=== PATIENT | female | born 1940 | race Caucasian/White ===

== ENCOUNTER 2016-09-26 13:24 | Inpatient (IN) | payer MEDICARE, OTHER ==
[~2016-09-26] VITALS: Ht 165.1 cm; Wt 104.3 kg
[~2016-09-26 13:24] MED LIST: DULO20 PO; HYDR-2768 PO; LORT7.5T3 PO; LYRI150C PO; MELO7.5T PO; PREG75 PO; TOPR25TA2 PO
[2016-09-26 13:46] VITALS: PULSE 62; RESP 18; TEMP 98.4; O2SAT 96
[2016-09-26] MEDS ORDERED: SODIUM CHLORIDE 0.9% FLUSH 5 ML FLUSH IV FLUSH PRN (14:00)
--- NOTE | 2016-09-26 14:11 | PD ---
HPI Chief Complaint: Injury Time Seen by Provider: 14:00 Travel History International Travel<30 days: No Contact w/Intl Traveler<30days: No Traveled to known affect area: No History of Present Illness HPI Patient is a 76-year-old female presenting to the emergency department for evaluation of altered mental status and frequent falls. Daughter is present states patient had a witnessed fall out of her wheelchair last night, she currently resides at [facility] and has 24-hour sitter's. Patient states that her left ankle is painful, she was diagnosed with a left ankle fracture last Sunday for a hospital and was splinted. She is supposed be nonweightbearing. Daughter states that her memory is deteriorating and she often repeats questions area patient reports the pain in the ankle as a 7 out of 10. She denies any other injury, related to the falls. Patient recently moved here from [place]. Her past medical history significant for hypertension, chronic kidney disease, type 2 diabetes, lumbar sacral radiculopathy, degenerative disc disease, overactive bladder, depression, GERD. PFSH Past Medical History Arthritis: Yes Asthma: No Autoimmune Disease: No Blood Disorders: No Anxiety: No Depression: Yes Heart Rhythm Problems: No Cancer: No Cardiac Catheterization: No High Cholesterol: Yes Chemotherapy: No Chest Pain: No Congestive Heart Failure: No COPD: No Cerebrovascular Accident: No Diabetes: Yes (BORDERLINE) Endocrine: No Gastrointestinal Disorders: No GERD: Yes Glaucoma: No Genitourinary: Yes (overactive bladder) Headaches: No Hepatitis: No Hiatal Hernia: No Herniated Disk: Yes (DDD) Hypertension: Yes Kidney Stones: No Musculoskeletal: Yes (lumbar radiculopathy) Neurologic: Yes (peripheral neuropathy) Reproductive: No Respiratory: No Myocardial Infarction: No Radiation Therapy: No Renal Failure: Yes (stage III chronic kidney disease) Seizures: No Sickle Cell Disease: No Sleep Apnea: No Thyroid Disease: No Ulcer: No Past Surgical History Abdominal Surgery: No AICD: No Cardiac Surgery: No Coronary Artery Bypass Graft: No Ear Surgery: No Endocrine Surgery: No Eye Surgery: No Genitourinary Surgery: No Gynecologic Surgery: No Hysterectomy: No Neurologic Surgery: No Oral Surgery: No Pacemaker: No Thoracic Surgery: No Other Surgery: Yes (bladder sling, laminectomy) Social History Alcohol Use: No Tobacco Use: No Substance Use: No Allergies-Medications (Allergen,Severity, Reaction): Coded Allergies: Compazine (Verified Allergy, Severe, 07/24/09) Elavil (Verified Allergy, Severe, 07/24/09) Neurontin (Verified Allergy, Severe, 07/24/09) Penicillin (Verified Allergy, Severe, 07/24/09) Reported Meds & Prescriptions Reported Meds & Active Scripts Active Reported Macrobid (Nitrofurantoin Monoh/Nitrofur Macro) 100 Mg Cap 100 Mg PO BID Vitamin D3 (Cholecalciferol) 1,000 Unit Tab 1,000 Units PO DAILY Vesicare (Solifenacin) 5 Mg Tab 5 Mg PO HS Trazodone (Trazodone HCl) 100 Mg Tablet 100 Mg PO HS Zoloft (Sertraline HCl) 100 Mg Tab 100 Mg PO DAILY Pantoprazole (Pantoprazole Sodium) 40 Mg Tab 40 Mg PO DAILY Percocet (Oxycodone-Acetaminophen) 7.5-325 mg Tab 1 Tab PO Q8HR PRN Gabapentin 600 Mg Tab 600 Mg PO TID Anti-Fungal (Clotrimazole (Topical)) 1 % Cre 1 Applic TOPICAL TID Atorvastatin (Atorvastatin Calcium) 10 Mg Tab 10 Mg PO HS Aspir-81 (Aspirin) 81 Mg Tabdr 81 Mg PO DAILY Amlodipine (Amlodipine Besylate) 10 Mg Tab 10 Mg PO DAILY Review of Systems Except as stated in HPI: all other systems reviewed are Neg General / Constitutional: No: Fever, Chills HENT: No: Headaches Cardiovascular: No: Chest Pain or Discomfort Respiratory: No: Shortness of Breath Gastrointestinal: No: Nausea, Vomiting, Abdominal Pain Genitourinary: Positive: Incontinence Musculoskeletal: Positive: Pain (left ankle) Skin: Positive Change in Pigmentation (left ankle and left rdz) Neurologic: Positive: Weakness, Change in Mentation, No: Focal Abnormalities Physical Exam Narrative GENERAL: Obese, well-developed, alert female. Resting comfortably in no acute distress. SKIN: Warm and dry. Ecchymosis to left ankle and erythema to left rdz. HEAD: Atraumatic. Normocephalic. EYES: Pupils equal and round. No scleral icterus. No injection or drainage. ENT: No nasal bleeding or discharge. Mucous membranes pink and moist. NECK: Trachea midline. No JVD. CARDIOVASCULAR: Regular rate and rhythm. RESPIRATORY: No accessory muscle use. Clear to auscultation. Breath sounds equal bilaterally. GASTROINTESTINAL: Abdomen soft, non-tender, nondistended. Hepatic and splenic margins not palpable. MUSCULOSKELETAL: Extremities without clubbing, cyanosis. Trace peripheral edema on the left. No obvious deformities. Positive pedal pulses bilaterally. NEUROLOGICAL: Awake and alert. Oriented 3. No obvious cranial nerve deficits. Motor grossly within normal limits. Five out of 5 muscle strength in the arms and legs. Normal speech. PSYCHIATRIC: Appropriate mood and affect; insight and judgment normal. Data Data Last Documented VS Vital Signs Date Time Temp Pulse Resp B/P Pulse Ox O2 Delivery O2 Flow Rate FiO2 09/26/16 15:08 72 24 164/64 98 Nasal Cannula 4 09/26/16 13:46 98.4 Orders Electrocardiogram (09/26/16 13:54) Complete Blood Count With Diff (09/26/16 13:54) Comprehensive Metabolic Panel (09/26/16 13:54) Creatine Kinase (Cpk) (09/26/16 13:54) Prothrombin Time / Inr (Pt) (09/26/16 13:54) Act Partial Throm Time (Ptt) (09/26/16 13:54) Urinalysis - C+S If Indicated (09/26/16 13:54) Lactic Acid Sepsis Protocol (09/26/16 13:54) Blood Culture (09/26/16 13:54) Chest, Single Ap (09/26/16 13:54) Ct Brain W/O Iv Contrast(Rout) (09/26/16 13:54) Blood Glucose (09/26/16 13:54) Ecg Monitoring (09/26/16 13:54) Iv Access Insert/Monitor (09/26/16 13:54) Cath For Specimen (09/26/16 13:54) Oximetry (09/26/16 13:54) Sodium Chloride 0.9% Flush (Ns Flush) (09/26/16 14:00) Ankle, Complete (Hnh2hkg) (09/26/16 ) Splinting (09/26/16 ) Admit Order (Ed Use Only) (09/26/16 16:16) Labs Laboratory Tests Test 09/26/16 09/26/16 14:00 15:19 White Blood Count 7.1 TH/MM3 Red Blood Count 4.28 MIL/MM3 Hemoglobin 11.9 GM/DL Hematocrit 36.4 % Mean Corpuscular Volume 85.0 FL Mean Corpuscular Hemoglobin 27.7 PG Mean Corpuscular Hemoglobin 32.6 % Concent Red Cell Distribution Width 15.8 % Platelet Count 166 TH/MM3 Mean Platelet Volume 7.9 FL Neutrophils (%) (Auto) 70.2 % Lymphocytes (%) (Auto) 19.0 % Monocytes (%) (Auto) 8.5 % Eosinophils (%) (Auto) 1.8 % Basophils (%) (Auto) 0.5 % Neutrophils # (Auto) 5.0 TH/MM3 Lymphocytes # (Auto) 1.4 TH/MM3 Monocytes # (Auto) 0.6 TH/MM3 Eosinophils # (Auto) 0.1 TH/MM3 Basophils # (Auto) 0.0 TH/MM3 CBC Comment DIFF FINAL Differential Comment Prothrombin Time 10.5 SEC Prothromb Time International 1.0 RATIO Ratio Activated Partial 28.0 SEC Thromboplast Time Sodium Level 139 MEQ/L Potassium Level 4.2 MEQ/L Chloride Level 101 MEQ/L Carbon Dioxide Level 30.8 MEQ/L Anion Gap 7 MEQ/L Blood Urea Nitrogen 19 MG/DL Creatinine 0.70 MG/DL Estimat Glomerular Filtration 81 ML/MIN Rate Random Glucose 109 MG/DL Lactic Acid Level 0.8 mmol/L Calcium Level 9.0 MG/DL Total Bilirubin 0.5 MG/DL Aspartate Amino Transf 11 U/L (AST/SGOT) Alanine Aminotransferase 16 U/L (ALT/SGPT) Alkaline Phosphatase 95 U/L Total Creatine Kinase 48 U/L Total Protein 7.1 GM/DL Albumin 3.5 GM/DL Urine Color LIGHT-RED Urine Turbidity CLEAR Urine pH 5.5 Urine Specific [place] 1.024 Urine Protein TRACE mg/dL Urine Glucose (UA) NEG mg/dL Urine Ketones NEG mg/dL Urine Occult Blood NEG Urine Nitrite NEG Urine Bilirubin NEG Urine Urobilinogen LESS THAN 2.0 MG/DL Urine Leukocyte Esterase NEG Urine RBC LESS THAN 1 /hpf Urine WBC LESS THAN 1 /hpf Urine Mucus FEW /lpf Microscopic Urinalysis Comment CATH-CULT NOT IND MDM Medical Decision Making Medical Screen Exam Complete: Yes Emergency Medical Condition: Yes Interpretation(s) Last Impressions Head CT 09/26/16 1354 Signed Impressions: Service Date/Time: Monday, September 26, 2016 14:21 - CONCLUSION: 1. No acute intracranial abnormalities. Retention cyst right maxillary sinus. Alonso Alvarez MD Chest X-Ray 09/26/16 1354 Signed Impressions: Service Date/Time: Monday, September 26, 2016 14:37 - CONCLUSION: No acute cardiopulmonary abnormality is identified. Reji Shultz MD Ankle X-Ray 09/26/16 0000 Signed Impressions: Service Date/Time: Monday, September 26, 2016 14:33 - CONCLUSION: Undermineralized bones with diffuse ankle soft tissue swelling. There is a possible nondisplaced lateral malleolus fracture. Reji Shultz MD Laboratory Tests Test 09/26/16 09/26/16 14:00 15:19 White Blood Count 7.1 TH/MM3 Red Blood Count 4.28 MIL/MM3 Hemoglobin 11.9 GM/DL Hematocrit 36.4 % Mean Corpuscular Volume 85.0 FL Mean Corpuscular Hemoglobin 27.7 PG Mean Corpuscular Hemoglobin 32.6 % Concent Red Cell Distribution Width 15.8 % Platelet Count 166 TH/MM3 Mean Platelet Volume 7.9 FL Neutrophils (%) (Auto) 70.2 % Lymphocytes (%) (Auto) 19.0 % Monocytes (%) (Auto) 8.5 % Eosinophils (%) (Auto) 1.8 % Basophils (%) (Auto) 0.5 % Neutrophils # (Auto) 5.0 TH/MM3 Lymphocytes # (Auto) 1.4 TH/MM3 Monocytes # (Auto) 0.6 TH/MM3 Eosinophils # (Auto) 0.1 TH/MM3 Basophils # (Auto) 0.0 TH/MM3 CBC Comment DIFF FINAL Differential Comment Prothrombin Time 10.5 SEC Prothromb Time International 1.0 RATIO Ratio Activated Partial 28.0 SEC Thromboplast Time Sodium Level 139 MEQ/L Potassium Level 4.2 MEQ/L Chloride Level 101 MEQ/L Carbon Dioxide Level 30.8 MEQ/L Anion Gap 7 MEQ/L Blood Urea Nitrogen 19 MG/DL Creatinine 0.70 MG/DL Estimat Glomerular Filtration 81 ML/MIN Rate Random Glucose 109 MG/DL Lactic Acid Level 0.8 mmol/L Calcium Level 9.0 MG/DL Total Bilirubin 0.5 MG/DL Aspartate Amino Transf 11 U/L (AST/SGOT) Alanine Aminotransferase 16 U/L (ALT/SGPT) Alkaline Phosphatase 95 U/L Total Creatine Kinase 48 U/L Total Protein 7.1 GM/DL Albumin 3.5 GM/DL Urine Color LIGHT-RED Urine Turbidity CLEAR Urine pH 5.5 Urine Specific [place] 1.024 Urine Protein TRACE mg/dL Urine Glucose (UA) NEG mg/dL Urine Ketones NEG mg/dL Urine Occult Blood NEG Urine Nitrite NEG Urine Bilirubin NEG Urine Urobilinogen LESS THAN 2.0 MG/DL Urine Leukocyte Esterase NEG Urine RBC LESS THAN 1 /hpf Urine WBC LESS THAN 1 /hpf Urine Mucus FEW /lpf Microscopic Urinalysis Comment CATH-CULT NOT IND Vital Signs Date Time Temp Pulse Resp B/P Pulse Ox O2 Delivery O2 Flow Rate FiO2 09/26/16 13:46 98.4 62 18 96 Differential Diagnosis Cellulitis versus UTI versus metabolic abnormality versus TIA versus deconditioning versus other Narrative Course Patient is a 76-year-old female presenting for evaluation of frequent falls and altered mental status. Patient was diagnosed with a left ankle fracture last Sunday at [facility]. She fell again last night. We'll repeat imaging of left ankle to rule out worsening displacement. Labs and imaging ordered and pending, IV access established, patient placed on telemetry monitoring and continuous pulse oximetry. Daughter at bedside and gave account of the recent events prompting patient's presentation to the emergency department. CBC is unremarkable Lactic acid 0.8 Chemistry with no acute findings Urinalysis is unremarkable Chest x-ray shows no acute disease CT of the brain with no acute intracranial abnormalities X-ray of the left ankle shows under mineralized bones with diffuse ankle soft tissue swelling, there is a possible nondisplaced lateral malleolus fracture, all imaging was read by radiologist. Discussed with Dr. Moore who accepted admission. He is advised that patient family was requesting placement and long-term care. Admit orders placed. Family and patient advised on findings. Diagnosis Primary Impression: Gait instability Additional Impressions: Frequent falls Ankle fracture, left Qualified Code: S82.892D - Ankle fracture, left, closed, with routine healing , subsequent encounter Admitting Information Admitting Physician Requests: Admit Condition: Stable Briseyda Núñez Sep 26, 2016 14:11
[2016-09-26 14:37] LABS: BASOPHIL % 0.5 % (0.0-2.0); EOSINOPHIL # 0.1 TH/MM3 (0-0.4); EOSINOPHIL % 1.8 % (0.0-4.0); HEMATOCRIT 36.4 % (35.0-46.0); HEMO FLAGS DIFF FINAL; LYMPHOCYTE # 1.4 TH/MM3 (1.0-4.8); MEAN CORPUSCULAR HEMOGLOBIN 27.7 PG (27.0-34.0); MEAN CORPUSCULAR HGB CONC 32.6 % (32.0-36.0); MONO % 8.5 % (0.0-8.0); NEUT % 70.2 % (16.0-70.0); PLATELET COUNT 166 TH/MM3 (150-450); RED BLOOD COUNT 4.28 MIL/MM3 (4.00-5.30); RED CELL DISTRIBUTION WIDTH 15.8 % (11.6-17.2); WHITE BLOOD COUNT 7.1 TH/MM3 (4.0-11.0)
[2016-09-26 14:41] LABS: PROTHROMBIN TIME - PATIENT 10.5 SEC (9.8-11.6)
--- NOTE | 2016-09-26 14:41 | RADRPT ---
EXAM DATE/TIME: 09/26/2016 14:21 [facility] COMPARISON: No previous studies available for comparison. INDICATIONS : Altered mental status. Multiple recent falls. RADIATION DOSE: 56.35 CTDIvol (mGy) MEDICAL HISTORY : Diabetes mellitus type 2. Hypertension. SURGICAL HISTORY : None. ENCOUNTER: Initial ACUITY: 1 day PAIN SCALE: 0/10 LOCATION: cranial TECHNIQUE: Multiple contiguous axial images were obtained of the head. Using automated exposure control and adj ustment of the mA and/or kV according to patient size, radiation dose was kept as low as reasonably a chievable to obtain optimal diagnostic quality images. DICOM format image data is available electro nically for review and comparison. FINDINGS: CEREBRUM: The ventricles are normal for age. No evidence of midline shift, mass lesion, hemorrhage or acute in farction. No extra-axial fluid collections are seen. POSTERIOR FOSSA: The cerebellum and brainstem are intact. The 4th ventricle is midline. The cerebellopontine angle i s unremarkable. EXTRACRANIAL: The visualized portion of the orbits is intact. SKULL: The calvaria is intact. No evidence of skull fracture. CONCLUSION: 1. No acute intracranial abnormalities. Retention cyst right maxillary sinus. Alonso Alvarez MD on September 26, 2016 at 14:37 Board Certified Radiologist. This report was verified electronically.
[2016-09-26 14:51] LABS: ANION GAP 7 MEQ/L (5-15); AST (GOT) 11 U/L (15-37); BICARBONATE 30.8 MEQ/L (21.0-32.0); BLOOD UREA NITROGEN 19 MG/DL (7-18); CHLORIDE 101 MEQ/L (98-107); GLOMERULAR FILTRATION RATE 81 ML/MIN (>89); POTASSIUM 4.2 MEQ/L (3.5-5.1); SODIUM (NA) 139 MEQ/L (136-145)
[2016-09-26 14:52] LABS: ALT (GPT) 16 U/L (10-53)
[2016-09-26 14:54] LABS: ALKALINE PHOSPHATASE 95 U/L (45-117); TOTAL BILIRUBIN ADULT 0.5 MG/DL (0.2-1.0)
[2016-09-26 15:08] VITALS: BP 164/64; PULSE 72; RESP 24; O2SAT 98
[2016-09-26 15:17] LABS: CREATINE KINASE 48 U/L (26-192)
--- NOTE | 2016-09-26 15:17 | RADRPT ---
EXAM DATE/TIME: 09/26/2016 14:33 [facility] COMPARISON: No previous studies available for comparison. INDICATIONS : Fall. Left ankle pain. MEDICAL HISTORY : None. SURGICAL HISTORY : Left ankle fracture (2014). ENCOUNTER: Initial ACUITY: 1 day PAIN SCORE: 5/10 LOCATION: Left lateral ankle FINDINGS: 3 views of the left ankle demonstrate possible nondisplaced fracture through the lateral malleolus. B ones are undermineralized. There is no dislocation. Ankle mortise is intact. There is diffuse soft ti ssue swelling. No radiopaque foreign bodies visualized. CONCLUSION: Undermineralized bones with diffuse ankle soft tissue swelling. There is a possible nondisplaced late ral malleolus fracture. Reji Shultz MD on September 26, 2016 at 15:13 Board Certified Radiologist. This report was verified electronically.
--- NOTE | 2016-09-26 15:23 | RADRPT ---
EXAM DATE/TIME: 09/26/2016 14:37 [facility] COMPARISON: No previous studies available for comparison. INDICATIONS : Fall. Left ankle pain. MEDICAL HISTORY : None. SURGICAL HISTORY : Left ankle fracture (2014). ENCOUNTER: Initial ACUITY: 1 day PAIN SCORE: 5/10 LOCATION: Left lateral ankle FINDINGS: Upright AP view of the chest demonstrates a normal-sized cardiac silhouette. No pleural effusion, air space consolidation, or pneumothorax is identified. The bones and soft tissues demonstrate no acute f inding. CONCLUSION: No acute cardiopulmonary abnormality is identified. Reji Shultz MD on September 26, 2016 at 15:20 Board Certified Radiologist. This report was verified electronically.
[2016-09-26] MEDS ORDERED: ASPI81TA81 PO (15:38)
[2016-09-26] MEDS ORDERED: ATOR10TA15 PO (15:38)
[2016-09-26] MEDS ORDERED: ANTI1CRE6 TOPICAL (15:38)
[2016-09-26] MEDS ORDERED: AMLO10TA2 PO (15:38)
[2016-09-26] MEDS ORDERED: MACR100C2 PO (15:43)
[2016-09-26] MEDS ORDERED: VESI5TAB PO (15:43)
[2016-09-26] MEDS ORDERED: ZOLO100T PO (15:43)
[2016-09-26] MEDS ORDERED: TRAZ100T6 PO (15:43)
[2016-09-26] MEDS ORDERED: VITA100064 PO (15:43)
[2016-09-26] MEDS ORDERED: PERC7.5T13 PO (15:43)
[2016-09-26] MEDS ORDERED: GABA600T PO (15:43)
[2016-09-26] MEDS ORDERED: PANT40TA3 PO (15:43)
[2016-09-26 16:05] LABS: BLOOD, URINE NEG (NEG); COMMENT (UR) CATH-CULT NOT IND; CULTURE IF INDICATED CATH CULTURE NOT IND; GLUCOSE,URINE NEG (NEG); KETONE, URINE NEG (NEG); MUCUS URINE FEW /lpf (OCC); NITRITE,URINE NEG (NEG); PH, URINE 5.5 (5.0-8.5)
[2016-09-26 16:09] LABS: URINE COLOR LIGHT-RED (YELLW/STRAW)
[2016-09-26] MEDS ORDERED: LACTULOSE SYRUP 20 GM/30 ML CUP PO PRN (16:30)
[2016-09-26] MEDS ORDERED: MAGNESIUM HYDROXIDE SUSP 30 ML CUP PO PRN (16:30)
[2016-09-26] MEDS ORDERED: SODIUM CHLORIDE 0.9% FLUSH 10 ML FLUSH IV FLUSH PRN (16:30)
[2016-09-26] MEDS ORDERED: SENNOSIDES 8.6 MG TAB PO PRN (16:30)
[2016-09-26] MEDS ORDERED: ONDANSETRON HCL 4 MG/2 ML VIAL IVP PRN (16:30)
[2016-09-26] MEDS ORDERED: NALOXONE HCL 0.4 MG/ML AMP IV PRN (16:30)
[2016-09-26] MEDS ORDERED: BISACODYL 10 MG SUPP RECTAL PRN (16:30)
[2016-09-26] MEDS ORDERED: ACETAMINOPHEN 325 MG TAB PO PRN (17:00)
--- NOTE | 2016-09-26 17:01 | HHI.HP ---
[facility] Service [facility] Primary Care Physician Smaan Uriarte M.D. Admission Diagnosis AMS, GAIT IMPAIRMENT, FALLS Diagnoses: (1) Frequent falls Diagnosis: Principal (2) Gait instability Diagnosis: Principal Chief Complaint: fall Travel History International Travel<30 Days: No Contact w/Intl Traveler <30 Da: No Traveled to Known Affected Are: No History of Present Illness patient is a 76 y/o female with history of hypertension,lumbar radiculopathy and dyslipidemia who was brought to ER after she fell at [facility]. she says that she fell last Sunday and was evaluated at [facility] and found to have ankle fracture. she was discharged home at the time. she says that she was instructed not to bear any weight on the left lower extremity- however she tried to walk yesterday when she fell again. she's complaining of some pain to the left foot. she denies any chest pain, sob or lightheadedness prior to the fall. she denies any loss of consciousness. she says that at times she feels dizzy.left foot pain was mild at the time of my evaluation. Review of Systems Constitutional: DENIES: Fever, Weight loss, Chills, Night Sweats Eyes: DENIES: Blurred vision, Diplopia, Vision loss, Double Vision Ears, nose, mouth, throat: DENIES: Tinnitus, Vertigo, Throat pain, Epistaxis Respiratory: DENIES: Apneas, Cough, Snoring, Wheezing, Hemoptysis, Sputum production, Shortness of breath Cardiovascular: DENIES: Chest pain, Palpitations, Syncope, Dyspnea on Exertion , PND, Lower Extremity Edema, Orthopnea, Claudication Gastrointestinal: DENIES: Abdominal pain, Black stools, Bloody stools, Constipation, Diarrhea, Nausea, Vomiting, Difficulty Swallowing, Anorexia Genitourinary: DENIES: Urinary frequency, Urgency, Hematuria, Dysuria Musculoskeletal: COMPLAINS OF: Joint pain (left ankle), DENIES: Muscle aches, Stiffness, Joint Swelling Integumentary: DENIES: Rash Neurologic: DENIES: Abnormal gait, Headache, Localized weakness, Paresthesias, Seizures, Speech Problems, Tremor, Poor Balance Psychiatric: DENIES: Anxiety, Confusion, Mood changes, Depression, Hallucinations, Agitation, Suicidal Ideation, Homicidal Ideation, Delusions Past Family Social History Past Medical History hypertension dyslipidemia lumbar radiculopathy depression Past Surgical History bladder sling. Reported Medications Macrobid (Nitrofurantoin Monoh/Nitrofur Macro) 100 Mg Cap 100 Mg PO BID Vitamin D3 (Cholecalciferol) 1,000 Unit Tab 1,000 Units PO DAILY Vesicare (Solifenacin) 5 Mg Tab 5 Mg PO HS Trazodone (Trazodone HCl) 100 Mg Tablet 100 Mg PO HS Zoloft (Sertraline HCl) 100 Mg Tab 100 Mg PO DAILY Pantoprazole (Pantoprazole Sodium) 40 Mg Tab 40 Mg PO DAILY Percocet (Oxycodone-Acetaminophen) 7.5-325 mg Tab 1 Tab PO Q8HR PRN Gabapentin 600 Mg Tab 600 Mg PO TID Anti-Fungal (Clotrimazole (Topical)) 1 % Cre 1 Applic TOPICAL TID Atorvastatin (Atorvastatin Calcium) 10 Mg Tab 10 Mg PO HS Aspir-81 (Aspirin) 81 Mg Tabdr 81 Mg PO DAILY Amlodipine (Amlodipine Besylate) 10 Mg Tab 10 Mg PO DAILY Allergies: Coded Allergies: Compazine (Verified Allergy, Severe, 07/24/09) Elavil (Verified Allergy, Severe, 07/24/09) Neurontin (Verified Allergy, Severe, 07/24/09) Penicillin (Verified Allergy, Severe, 07/24/09) Active Ordered Medications Current Medications IV Flush (NS Flush) 2 ml UNSCH PRN IV FLUSH FLUSH AFTER USING IV ACCESS; Start 09/26/16 at 14:00 Sodium Chloride (NS Flush) 2 ml UNSCH PRN IV FLUSH FLUSH AFTER USING IV ACCESS ; Start 09/26/16 at 16:30; Status UNV Sodium Chloride (NS Flush) 2 ml BID IV FLUSH ; Start 09/26/16 at 21:00; Status UNV Ondansetron HCl (Zofran Inj) 4 mg Q6H PRN IVP NAUSEA OR VOMITING; Start at 16:30; Status UNV Naloxone HCl (Narcan Inj) 0.4 mg UNSCH PRN IV SEE LABEL COMMENTS; Start at 16:30; Status UNV Magnesium Hydroxide (Milk Of Magnesia Liq) 30 ml Q12H PRN PO MILD - MODERATE CONSTIPATION; Start 09/26/16 at 16:30; Status UNV Sennosides (Senokot) 17.2 mg Q12H PRN PO MODERATE - SEVERE CONSTIPATION; Start 09/26/16 at 16:30; Status UNV Bisacodyl (Dulcolax Supp) 10 mg DAILY PRN RECTAL SEVERE CONSITIPATION; Start at 16:30; Status UNV Lactulose (Lactulose Liq) 30 ml DAILY PRN PO SEVERE CONSITIPATION; Start at 16:30; Status UNV Family History not relevant to this admission. Social History lives at [facility]. no smoking or drinking. Physical Exam Vital Signs Vital Signs Date Time Temp Pulse Resp B/P Pulse Ox O2 Delivery O2 Flow Rate FiO2 09/26/16 15:08 72 24 164/64 98 Nasal Cannula 4 09/26/16 14:54 Nasal Cannula 2 09/26/16 13:46 98.4 62 18 96 Physical Exam GENERAL: This is a well-nourished, well-developed patient, in no apparent distress. SKIN: No rashes, ecchymoses or lesions. Cool and dry. HEAD: Atraumatic. Normocephalic. No temporal or scalp tenderness. EYES: Pupils equal round and reactive. Extraocular motions intact. No scleral icterus. No injection or drainage. ENT: Nose without bleeding, purulent drainage or septal hematoma. Throat without erythema, tonsillar hypertrophy or exudate. Uvula midline. Airway patent. NECK: Trachea midline. No JVD or lymphadenopathy. Supple, nontender, no meningeal signs. CARDIOVASCULAR: Regular rate and rhythm without murmurs, gallops, or rubs. RESPIRATORY: Clear to auscultation. Breath sounds equal bilaterally. No wheezes , rales, or rhonchi. GASTROINTESTINAL: Abdomen soft, non-tender, nondistended. No hepato-splenomegaly , or palpable masses. No guarding. MUSCULOSKELETAL: left leg covered with clean dressing. NEUROLOGICAL: Awake and alert. Cranial nerves II through XII intact. Motor and sensory grossly within normal limits. Five out of 5 muscle strength in all muscle groups. Normal speech. Laboratory Laboratory Tests Test 09/26/16 09/26/16 14:00 15:19 White Blood Count 7.1 Red Blood Count 4.28 Hemoglobin 11.9 Hematocrit 36.4 Mean Corpuscular Volume 85.0 Mean Corpuscular Hemoglobin 27.7 Mean Corpuscular Hemoglobin 32.6 Concent Red Cell Distribution Width 15.8 Platelet Count 166 Mean Platelet Volume 7.9 Neutrophils (%) (Auto) 70.2 Lymphocytes (%) (Auto) 19.0 Monocytes (%) (Auto) 8.5 Eosinophils (%) (Auto) 1.8 Basophils (%) (Auto) 0.5 Neutrophils # (Auto) 5.0 Lymphocytes # (Auto) 1.4 Monocytes # (Auto) 0.6 Eosinophils # (Auto) 0.1 Basophils # (Auto) 0.0 CBC Comment DIFF FINAL Differential Comment Prothrombin Time 10.5 Prothromb Time International 1.0 Ratio Activated Partial 28.0 Thromboplast Time Sodium Level 139 Potassium Level 4.2 Chloride Level 101 Carbon Dioxide Level 30.8 Anion Gap 7 Blood Urea Nitrogen 19 Creatinine 0.70 Estimat Glomerular Filtration 81 Rate Random Glucose 109 Lactic Acid Level 0.8 Calcium Level 9.0 Total Bilirubin 0.5 Aspartate Amino Transf 11 (AST/SGOT) Alanine Aminotransferase 16 (ALT/SGPT) Alkaline Phosphatase 95 Total Creatine Kinase 48 Total Protein 7.1 Albumin 3.5 Urine Color LIGHT-RED Urine Turbidity CLEAR Urine pH 5.5 Urine Specific [place] 1.024 Urine Protein TRACE Urine Glucose (UA) NEG Urine Ketones NEG Urine Occult Blood NEG Urine Nitrite NEG Urine Bilirubin NEG Urine Urobilinogen LESS THAN 2.0 Urine Leukocyte Esterase NEG Urine RBC LESS THAN 1 Urine WBC LESS THAN 1 Urine Mucus FEW Microscopic Urinalysis Comment CATH-CULT NOT IND Date/Time Procedure Status Source Growth 09/26/16 14:12 Aerobic Blood Culture Received Blood Peripheral Pending 09/26/16 14:12 Anaerobic Blood Culture Received Blood Peripheral Pending Result Diagram: 09/26/16 1400 09/26/16 1400 Imaging Last Impressions Head CT 09/26/16 1354 Signed Impressions: Service Date/Time: Monday, September 26, 2016 14:21 - CONCLUSION: 1. No acute intracranial abnormalities. Retention cyst right maxillary sinus. Alonso Alvarez MD Chest X-Ray 09/26/16 1354 Signed Impressions: Service Date/Time: Monday, September 26, 2016 14:37 - CONCLUSION: No acute cardiopulmonary abnormality is identified. Reji Shultz MD Ankle X-Ray 09/26/16 0000 Signed Impressions: Service Date/Time: Monday, September 26, 2016 14:33 - CONCLUSION: Undermineralized bones with diffuse ankle soft tissue swelling. There is a possible nondisplaced lateral malleolus fracture. Reji Shultz MD Assessment and Plan Assessment and Plan A/P - frequent falls with gait imbalance with possible nondisplaced fracture of the left lateral malleolus fall precautions- continue with pain control- consult case management and PT. will check carotid doppler. f/u with ortho as outpatient. -hypertension/ dyslipidemia/ depression; resume home meds -DVT prophylaxis with subq Lovenox Discussed Condition With the patient. Luis Moran MD Sep 26, 2016 17:01
[2016-09-26 17:26] VITALS: BP 121/71; PULSE 69; RESP 20; TEMP 96.6; O2SAT 94
[2016-09-26] MEDS ORDERED: SODIUM CHLOR 0.9% 1000 ML INJ 1,000 ML IV ONE (17:30)
[2016-09-26] MEDS: ENOXAPARIN SODIUM 40 MG/0.4 ML SYRINGE SQ SCH (18:22)
[2016-09-26 19:52] VITALS: BP 141/63; PULSE 70; RESP 18; TEMP 98.1; O2SAT 94
[2016-09-26] MEDS: ATORVASTATIN 10 MG TAB PO SCH (20:05)
[2016-09-26] MEDS: traZODone HCL 100 MG TAB PO SCH (20:05)
[2016-09-26] MEDS: ACETAMINOPHEN/HYDROcodone 325 MG/5 MG TAB PO PRN ×2 (20:12)
--- NOTE | 2016-09-26 20:31 | RADRPT ---
EXAM DATE/TIME: 09/26/2016 18:54 [facility] COMPARISON: No previous studies available for comparison. INDICATIONS : Dizziness. MEDICAL HISTORY : Hypercholesterolemia. Gastroesophageal reflux disease. Hypertension. Peripheral neuropathy. Renal rylie lure. Arthritis. Degenerative disc disease. Diabetes. Blood transfusion. SURGICAL HISTORY : Hysterectomy. Laminectomy. ENCOUNTER: Initial ACUITY: 1 day PAIN SCORE: 0/10 LOCATION: Bilateral neck PEAK SYSTOLIC VELOCITIES (cm/sec): ICA/CCA RATIO: Right: 0.9 Left: 1.3 ICA: Right: 109 Left: 149 (distal); 110 (midportion) CCA: Right: 116 Left: 111 ECA: Right: 128 Left: 115 VERTEBRAL: Right: 92 antegrade Left: 61 antegrade Elevated flow velocities and ICA/CCA ratios have been found to correlate with increased degrees of vessel stenosis, calculated as percentage of diameter relative to a normal segment of distal ICA/CCA FINDINGS: RIGHT CAROTID: No significant stenosis is visualized. The waveforms are within normal limits. LEFT CAROTID: No significant stenosis is visualized. The waveforms are within normal limits. VERTEBRAL ARTERIES: Antegrade flow is seen in both vertebral arteries. CONCLUSION: Hemodynamic profile is characteristic of less than 50% stenosis bilaterally. Casper Parkinson MD on September 26, 2016 at 20:28 Board Certified Radiologist. This report was verified electronically.
[2016-09-26] MEDS: SODIUM CHLORIDE 0.9% FLUSH 10 ML FLUSH IV FLUSH SCH (21:00)
[2016-09-26] MEDS: TOLTERODINE TARTRATE 2 MG CAP LA PO SCH (21:30)
[2016-09-26 22:01] VITALS: PULSE 68
[2016-09-26 23:59] VITALS: PULSE 64
[2016-09-27] VITALS (12 sets, daily range): BP systolic 116–161; BP diastolic 55–83; PULSE 61–76; RESP 16–18; TEMP 97.8–98.7; O2SAT 88–94
[2016-09-27] MEDS: ACETAMINOPHEN/HYDROcodone 325 MG/5 MG TAB PO PRN ×4 (01:47→17:52)
[2016-09-27 08:17] LABS: AUTOMATED NEUTROPHIL # 3.7 TH/MM3 (1.8-7.7); BASOPHIL % 0.6 % (0.0-2.0); EOSINOPHIL # 0.1 TH/MM3 (0-0.4); EOSINOPHIL % 1.9 % (0.0-4.0); HEMATOCRIT 29.9 % (35.0-46.0); HEMO FLAGS DIFF FINAL; LYMPHOCYTE # 1.9 TH/MM3 (1.0-4.8); MEAN CELL VOLUME 83.9 FL (80.0-100.0); MEAN CORPUSCULAR HEMOGLOBIN 28.1 PG (27.0-34.0); MEAN CORPUSCULAR HGB CONC 33.6 % (32.0-36.0); NEUT % 58.5 % (16.0-70.0); PLATELET COUNT 145 TH/MM3 (150-450); RED BLOOD COUNT 3.56 MIL/MM3 (4.00-5.30); RED CELL DISTRIBUTION WIDTH 15.9 % (11.6-17.2); WHITE BLOOD COUNT 6.2 TH/MM3 (4.0-11.0)
--- NOTE | 2016-09-27 08:22 | HHI.PR ---
Subjective Remarks Follow up for fall, left ankle fracture. The patient explains she was bending over to pepper picker something off the floor and upon standing, she became dizzy, lost her balance, and fell. She denies any loss of consciousness. She complains of dysuria and believes she has a UTI. Denies any abdominal/suprapubic pain, nausea/vomiting. She does complain of left ankle pain, fairly well controlled. She explains she also has neuropathy in her right foot and now that she has a cast on the left, it is going to be very difficult for her to get around. She absolutely agrees to rehab placement. Objective Vitals Vital Signs Date Time Temp Pulse Resp B/P Pulse Ox O2 Delivery O2 Flow Rate FiO2 09/27/16 07:28 98.0 68 18 133/61 88 09/27/16 04:14 73 09/27/16 03:45 98.1 68 18 126/65 92 09/27/16 00:02 98.5 73 16 139/67 90 09/26/16 23:59 64 09/26/16 22:01 68 09/26/16 19:52 98.1 70 18 141/63 94 09/26/16 17:26 96.6 69 20 121/71 94 09/26/16 15:08 72 24 164/64 98 Nasal Cannula 4 09/26/16 14:54 Nasal Cannula 2 09/26/16 13:46 98.4 62 18 96 I/O 09/26/16 09/26/16 09/26/16 09/27/16 09/27/16 09/27/16 07:00 15:00 23:00 07:00 15:00 23:00 Intake Total 915 ml Output Total 300 ml Balance -300 ml 915 ml Intake Oral 240 ml IV Total 675 ml Output Urine Total 300 ml # Voids 1 2 Result Diagram: 09/27/16 0800 09/26/16 1400 Imaging Last Impressions Head CT 09/26/16 1354 Signed Impressions: Service Date/Time: Monday, September 26, 2016 14:21 - CONCLUSION: 1. No acute intracranial abnormalities. Retention cyst right maxillary sinus. Alonso Alvarez MD Chest X-Ray 09/26/16 1354 Signed Impressions: Service Date/Time: Monday, September 26, 2016 14:37 - CONCLUSION: No acute cardiopulmonary abnormality is identified. Reji Shultz MD Carotid Artery Ultrasound 09/26/16 0000 Signed Impressions: Service Date/Time: Monday, September 26, 2016 18:54 - CONCLUSION: Hemodynamic profile is characteristic of less than 50%% stenosis bilaterally. Casper Parkinson MD Ankle X-Ray 09/26/16 0000 Signed Impressions: Service Date/Time: Monday, September 26, 2016 14:33 - CONCLUSION: Undermineralized bones with diffuse ankle soft tissue swelling. There is a possible nondisplaced lateral malleolus fracture. Reji Shultz MD Objective Remarks GENERAL: Well-nourished, well-developed pleasant elderly female patient in [facility]. SKIN: Warm and dry. No rash. HEENT: Normocephalic. Atraumatic. Pupils equal and round. Mucous membranes pink and moist. NECK: Supple. Trachea midline. CARDIOVASCULAR: Regular rate and rhythm. S1, S2 noted. No murmur appreciated. RESPIRATORY: No accessory muscle use. Clear to auscultation. Breath sounds equal bilaterally. GASTROINTESTINAL: Abdomen soft, non-tender, nondistended. Normoactive bowel sounds x4. MUSCULOSKELETAL: No obvious deformities. Extremities without clubbing, cyanosis , or edema. Left leg in splint; brisk capillary refill of toes; distal lower extremity sensation intact. NEUROLOGICAL: Awake and alert. No obvious cranial nerve deficits. Motor grossly within normal limits. Normal speech. PSYCHIATRIC: Appropriate mood and affect; insight and judgment normal. Medications and IVs Current Medications Medications (Trade) Dose Ordered Sig/Sanaz Route Start Time Stop Time Status Last Admin (NS Flush) 2 ml UNSCH PRN IV FLUSH 09/26/16 16:30 09/26/16 18:22 (NS Flush) 2 ml BID IV FLUSH 09/26/16 21:00 (Zofran Inj) 4 mg Q6H PRN IVP 09/26/16 16:30 (Narcan Inj) 0.4 mg UNSCH PRN IV 09/26/16 16:30 (Milk Of Magnesia Liq) 30 ml Q12H PRN PO 09/26/16 16:30 (Senokot) 17.2 mg Q12H PRN PO 09/26/16 16:30 (Dulcolax Supp) 10 mg DAILY PRN RECTAL 09/26/16 16:30 (Lactulose Liq) 30 ml DAILY PRN PO 09/26/16 16:30 (Norvasc) 10 mg DAILY PO 09/27/16 09:00 09/27/16 09:56 (Ecotrin Ec) 81 mg DAILY PO 09/27/16 09:00 09/27/16 09:56 (Lipitor) 10 mg HS PO 09/26/16 21:00 09/26/16 20:05 (Vitamin D3) 1,000 units DAILY PO 09/27/16 09:00 09/27/16 09:56 (Protonix) 40 mg DAILY PO 09/27/16 09:00 09/27/16 09:56 (Zoloft) 100 mg DAILY PO 09/27/16 09:00 09/27/16 09:56 (Detrol La) 2 mg HS PO 09/26/16 21:00 09/26/16 21:30 (Desyrel) 100 mg HS PO 09/26/16 21:00 09/26/16 20:05 (Tylenol) 650 mg Q4H PRN PO 09/26/16 17:00 ([place] 5-325 Mg) 1 tab Q4H PRN PO 09/26/16 17:00 ([place] 5-325 Mg) 2 tab Q4H PRN PO 09/26/16 17:00 09/27/16 10:19 (Lovenox Inj) 40 mg Q24H SQ 09/26/16 18:00 09/26/16 18:22 A/P Problem List: (1) Frequent falls ICD Code: R29.6 Status: Acute (2) Gait instability ICD Code: R26.81 Status: Acute Assessment and Plan 76-year-old female with history of HTN, HLD, lumbar radiculopathy, neuropathy, presents after a fall at her [facility]. She also reports recent fall last 09/20, went to , diagnosed with ankle fracture, recommend splint, NWB, and f/up with ortho as outpatient. Frequent falls with gait imbalance: suspect multifactorial secondary to lumbar radiculopathy, neuropathy, and now with left ankle fracture in splint. -Head CT images reviewed, unremarkable -Carotid U/S reviewed and unremarkable -Consult PT -fall precautions -check orthostatics -patient likely needs rehab -case management consulted Subacute Nondisplaced Fracture of Left Lateral Malleolus: ankle xray reviewed, shows diffuse ankle soft tissue swelling with nondisplaced lateral malleolus fracture. -Splint placed in the ED, will continue -NWB to LLE -pain control with [place] prn -outpatient f/up with orthopedics Hypertension/Hyperlipidemia: chronic -continue patient' Norvasc, statin -monitor BP, adjust antihypertensives as needed Depression: chronic -continue home meds including Zoloft and Trazodone Dysuria: patient reports dysuria however UA negative, afebrile, no leukocytosis ; appears patient was on Macrobid prior to arrival -will repeat UA again today with mandatory urine culture -start on Pyridium DVT prophylaxis: Lovenox Discharge Planning Case management to arrange SNF placement. 1600hrs: Discussed with case management. Patient meets inpatient criteria for hypoxia, O2 sat 88% on room air. Patient has had persistent hypoxia throughout the admission. Patient does not wear oxygen at home. CXR reviewed and unremarkable. Will check CT-PA to rule out PE. Demi Virgen PA-C Sep 27, 2016 8:22 am
[2016-09-27 08:46] LABS: ALKALINE PHOSPHATASE 79 U/L (45-117); ALT (GPT) 13 U/L (10-53); ANION GAP 6 MEQ/L (5-15); AST (GOT) 11 U/L (15-37); BICARBONATE 30.2 MEQ/L (21.0-32.0); BLOOD UREA NITROGEN 17 MG/DL (7-18); CHLORIDE 101 MEQ/L (98-107); GLOMERULAR FILTRATION RATE 85 ML/MIN (>89); POTASSIUM 4.1 MEQ/L (3.5-5.1); SODIUM (NA) 137 MEQ/L (136-145); TOTAL BILIRUBIN ADULT 0.4 MG/DL (0.2-1.0)
[2016-09-27] MEDS: SODIUM CHLORIDE 0.9% FLUSH 10 ML FLUSH IV FLUSH SCH ×2 (09:00→21:35)
[2016-09-27] MEDS: PANTOPRAZOLE SOD 40 MG DELAYED RELEASE TAB PO SCH (09:56)
[2016-09-27] MEDS: ASPIRIN EC 81 MG TABEC PO SCH (09:56)
[2016-09-27] MEDS: CHOLECALCIFEROL (VIT D3) 1000 UNIT TAB PO SCH (09:56)
[2016-09-27] MEDS: SERTRALINE HCL 100 MG TAB PO SCH (09:56)
--- NOTE | 2016-09-27 10:59 | EKG ---
Date Performed: 09/26/2016 Time Performed: 14:48:07 PTAGE: 76 years EKG: Sinus rhythm NORMAL ECG PREVIOUS TRACING : 11/16/2008 18.53 DOCTOR: Jose Luis Pompa Interpretating Date/Time 09/27/2016 10:58:26
[2016-09-27 14:31] LABS: BLOOD, URINE NEG (NEG); COMMENT (UR) CULT NOT INDICATED; CULTURE IF INDICATED CULT NOT INDICATED; GLUCOSE,URINE NEG (NEG); KETONE, URINE NEG (NEG); MUCUS URINE FEW /lpf (OCC); NITRITE,URINE NEG (NEG); SQUAMOUS EPITHELIAL CELL URINE 1 /hpf (0-5); URINE COLOR LIGHT-YELLOW (YELLW/STRAW)
[2016-09-27] MEDS ORDERED: PHENAZOPYRIDINE HCL 100 MG TAB PO ONE (16:30)
[2016-09-27] MEDS: ENOXAPARIN SODIUM 40 MG/0.4 ML SYRINGE SQ SCH (17:49)
[2016-09-27] MEDS ORDERED: IOHEXOL 350 MG/ML 10 ML VIAL (for RAD DIAG) IV ONE (20:14)
--- NOTE | 2016-09-27 20:55 | RADRPT ---
EXAM DATE/TIME: 09/27/2016 20:08 [facility] COMPARISON: No previous studies available for comparison. INDICATIONS : Shortness of breath. IV CONTRAST: 75 cc Omnipaque 350 (iohexol) IV RADIATION DOSE: 23.10 CTDIvol (mGy) MEDICAL HISTORY : Hypertension. Cardiovascular disease SURGICAL HISTORY : Hysterectomy. ENCOUNTER: Initial ACUITY: 1 day PAIN SCALE: 0/10 LOCATION: Bilateral chest TECHNIQUE: Volumetric scanning of the chest was performed using a pulmonary embolism protocol MIP images were re constructed. Using automated exposure control and adjustment of the mA and/or kV according to patien t size, radiation dose was kept as low as reasonably achievable to obtain optimal diagnostic quality images. DICOM format image data is available electronically for review and comparison. Follow-up recommendations for incidentally detected pulmonary nodules are based at a minimum on nodul e size and patient risk factors according to Fleischner Society Guidelines. FINDINGS: PULMONARY ARTERIES: No filling defects are seen in the pulmonary arteries through the segmental level. LUNGS: There is no consolidation or pneumothorax . No concerning pulmonary nodule is visualized. Mild biba silar atelectasis. PLEURAE: There are bilateral small pleural effusions extending along the major fissure bilaterally. MEDIASTINUM: Subcarinal node is enlarged at 2.0 cm. Azygous node is normal size. CONCLUSION: 1. The study is negative for pulmonary embolism. 2. Solitary enlarged subcarinal node is of uncertain significance. 3. Mild bilateral effusions in the fissures and mild bibasilar atelectasis. Casper Parkinson MD on September 27, 2016 at 20:50 Board Certified Radiologist. This report was verified electronically.
[2016-09-27] MEDS: TOLTERODINE TARTRATE 2 MG CAP LA PO SCH (21:34)
[2016-09-27] MEDS: PHENAZOPYRIDINE HCL 100 MG TAB PO SCH (21:34)
[2016-09-27] MEDS: traZODone HCL 100 MG TAB PO SCH (21:34)
[2016-09-27] MEDS: ATORVASTATIN 10 MG TAB PO SCH (21:34)
[2016-09-28] VITALS (8 sets, daily range): BP systolic 104–163; BP diastolic 40–69; PULSE 60–72; RESP 17–18; TEMP 96.6–98; O2SAT 94–95
[2016-09-28] MEDS: ACETAMINOPHEN/HYDROcodone 325 MG/5 MG TAB PO PRN ×4 (03:41→22:23)
[2016-09-28] MEDS: PHENAZOPYRIDINE HCL 100 MG TAB PO SCH ×3 (06:17→22:22)
[2016-09-28] MEDS: SODIUM CHLORIDE 0.9% FLUSH 10 ML FLUSH IV FLUSH SCH ×2 (09:00→22:22)
[2016-09-28] MEDS: ASPIRIN EC 81 MG TABEC PO SCH (10:24)
[2016-09-28] MEDS: CHOLECALCIFEROL (VIT D3) 1000 UNIT TAB PO SCH (10:24)
[2016-09-28] MEDS: PANTOPRAZOLE SOD 40 MG DELAYED RELEASE TAB PO SCH (10:24)
[2016-09-28] MEDS: SERTRALINE HCL 100 MG TAB PO SCH (10:24)
[2016-09-28] MEDS: ENOXAPARIN SODIUM 40 MG/0.4 ML SYRINGE SQ SCH (16:51)
--- NOTE | 2016-09-28 18:43 | HHI.PR ---
Subjective Remarks Follow up for fall, left ankle fracture. Patient is doing well. No fever, chills. Objective Vitals Vital Signs Date Time Temp Pulse Resp B/P Pulse Ox O2 Delivery O2 Flow Rate FiO2 09/28/16 15:56 72 09/28/16 15:34 96.8 68 18 104/40 95 09/28/16 11:28 96.6 71 18 138/58 95 09/28/16 07:42 97.2 60 18 117/64 94 09/28/16 07:30 Nasal Cannula 2.00 09/28/16 04:40 98.0 70 18 153/67 94 09/27/16 23:00 98.7 70 17 145/83 93 09/27/16 22:12 69 09/27/16 20:30 16 09/27/16 19:24 98.1 76 18 161/72 94 I/O 09/27/16 09/27/16 09/27/16 09/28/16 09/28/16 09/28/16 06:59 14:59 22:59 06:59 14:59 22:59 Intake Total 915 ml 960 ml 1100 ml Balance 915 ml 960 ml 1100 ml Intake Oral 240 ml 720 ml 1100 ml IV Total 675 ml 240 ml # Voids 2 3 1 10 # Bowel Movements 1 Result Diagram: 09/27/16 0800 09/27/16 [address] Angiography 09/27/16 0000 Signed Impressions: Service Date/Time: Tuesday, September 27, 2016 20:08 - CONCLUSION: 1. The study is negative for pulmonary embolism. 2. Solitary enlarged subcarinal node is of uncertain significance. 3. Mild bilateral effusions in the fissures and mild bibasilar atelectasis. Casper Parkinson MD Head CT 09/26/16 1354 Signed Impressions: Service Date/Time: Monday, September 26, 2016 14:21 - CONCLUSION: 1. No acute intracranial abnormalities. Retention cyst right maxillary sinus. Alonso Alvarez MD Chest X-Ray 09/26/16 1354 Signed Impressions: Service Date/Time: Monday, September 26, 2016 14:37 - CONCLUSION: No acute cardiopulmonary abnormality is identified. Reji Shultz MD Carotid Artery Ultrasound 09/26/16 0000 Signed Impressions: Service Date/Time: Monday, September 26, 2016 18:54 - CONCLUSION: Hemodynamic profile is characteristic of less than 50%% stenosis bilaterally. Casper Parkinson MD Ankle X-Ray 09/26/16 0000 Signed Impressions: Service Date/Time: Monday, September 26, 2016 14:33 - CONCLUSION: Undermineralized bones with diffuse ankle soft tissue swelling. There is a possible nondisplaced lateral malleolus fracture. Reji Shultz MD Objective Remarks GENERAL: Alert, NAD. SKIN: Warm and dry. HEAD: Normocephalic. EYES: No scleral icterus. No injection or drainage. NECK: Supple, trachea midline. No JVD or lymphadenopathy. CARDIOVASCULAR: Regular rate and rhythm without murmurs, gallops, or rubs. RESPIRATORY: Breath sounds equal bilaterally. No accessory muscle use. GASTROINTESTINAL: Abdomen soft, non-tender, nondistended. MUSCULOSKELETAL: No cyanosis, or edema. Left leg in splint BACK: Nontender without obvious deformity. No CVA tenderness. A/P Problem List: (1) Frequent falls ICD Code: R29.6 Status: Acute (2) Gait instability ICD Code: R26.81 Status: Acute Assessment and Plan 76-year-old female with history of HTN, HLD, lumbar radiculopathy, neuropathy, presents after a fall at her [facility]. She also reports recent fall last 09/20, went to , diagnosed with ankle fracture, recommend splint, NWB, and f/up with ortho as outpatient. Frequent falls with gait imbalance: suspect multifactorial secondary to lumbar radiculopathy, neuropathy, and now with left ankle fracture in splint. -Head CT images reviewed, unremarkable -Carotid U/S reviewed and unremarkable -Consult PT --> recommends rehab. -fall precautions Subacute Nondisplaced Fracture of Left Lateral Malleolus: ankle xray reviewed, shows diffuse ankle soft tissue swelling with nondisplaced lateral malleolus fracture. -Splint placed in the ED, will continue -NWB to LLE -pain control with [place] prn -outpatient f/up with orthopedics Hypertension/Hyperlipidemia: chronic -continue patient' Norvasc, statin -monitor BP, adjust antihypertensives as needed Depression: chronic -continue home meds including Zoloft and Trazodone Dysuria: patient reports dysuria however UA negative, afebrile, no leukocytosis ; appears patient was on Macrobid prior to arrival - repeat UA unremarkable. -cont Pyridium Hypoxia - Patient's O2 sat went down to 88% on room air. CT PE showed no evidence of PE. - Will continue O2 supplement as needed to keep O2 sat > 90%. DVT prophylaxis: Shanel Hanson DO Sep 28, 2016 18:43
[2016-09-28] MEDS: ATORVASTATIN 10 MG TAB PO SCH (22:21)
[2016-09-28] MEDS: traZODone HCL 100 MG TAB PO SCH (22:21)
[2016-09-28] MEDS: TOLTERODINE TARTRATE 2 MG CAP LA PO SCH (22:22)
[2016-09-29 04:00] VITALS: BP 142/63; PULSE 69; RESP 18; TEMP 97; O2SAT 95
[2016-09-29] MEDS: PHENAZOPYRIDINE HCL 100 MG TAB PO SCH ×2 (05:13→13:03)
[2016-09-29] MEDS: ACETAMINOPHEN/HYDROcodone 325 MG/5 MG TAB PO PRN ×2 (05:14→11:08)
[2016-09-29 07:42] VITALS: BP 120/62; PULSE 69; RESP 18; TEMP 95.9; O2SAT 97
[2016-09-29] MEDS: SODIUM CHLORIDE 0.9% FLUSH 10 ML FLUSH IV FLUSH SCH (09:00)
[2016-09-29 09:35] VITALS: PULSE 64
[2016-09-29] MEDS: CHOLECALCIFEROL (VIT D3) 1000 UNIT TAB PO SCH (09:42)
[2016-09-29] MEDS: SERTRALINE HCL 100 MG TAB PO SCH (09:42)
[2016-09-29] MEDS: ASPIRIN EC 81 MG TABEC PO SCH (09:42)
[2016-09-29] MEDS: PANTOPRAZOLE SOD 40 MG DELAYED RELEASE TAB PO SCH (09:42)
[2016-09-29 11:55] VITALS: BP 161/60; PULSE 73; RESP 18; TEMP 97.4; O2SAT 96
--- NOTE | 2016-09-29 12:02 | HHI.PR ---
Subjective Remarks Follow up for fall, left ankle fracture. Patient is resting in bed. Wakes up on verbal commands. No acute concerns. Objective Vitals Vital Signs Date Time Temp Pulse Resp B/P Pulse Ox O2 Delivery O2 Flow Rate FiO2 09/29/16 11:55 97.4 73 18 161/60 96 09/29/16 07:42 95.9 69 18 120/62 97 09/29/16 04:00 Nasal Cannula 2.00 09/29/16 04:00 97.0 69 18 142/63 95 09/29/16 00:00 Nasal Cannula 2.00 09/28/16 23:45 97.1 61 18 143/67 95 09/28/16 20:25 96.7 67 17 163/69 94 09/28/16 20:19 65 09/28/16 20:00 Nasal Cannula 2.00 09/28/16 15:56 72 09/28/16 15:34 96.8 68 18 104/40 95 I/O 09/28/16 09/28/16 09/28/16 09/29/16 09/29/16 09/29/16 07:00 15:00 23:00 07:00 15:00 23:00 Intake Total 1100 ml 480 ml 240 ml Balance 1100 ml 480 ml 240 ml Intake Oral 1100 ml 480 ml 240 ml # Voids 10 4 8 # Bowel Movements 1 1 0 Result Diagram: 09/27/16 0800 09/27/16 [address] Angiography 09/27/16 0000 Signed Impressions: Service Date/Time: Tuesday, September 27, 2016 20:08 - CONCLUSION: 1. The study is negative for pulmonary embolism. 2. Solitary enlarged subcarinal node is of uncertain significance. 3. Mild bilateral effusions in the fissures and mild bibasilar atelectasis. Casper Parkinson MD Head CT 09/26/16 1354 Signed Impressions: Service Date/Time: Monday, September 26, 2016 14:21 - CONCLUSION: 1. No acute intracranial abnormalities. Retention cyst right maxillary sinus. Alonso Alvarez MD Chest X-Ray 09/26/16 1354 Signed Impressions: Service Date/Time: Monday, September 26, 2016 14:37 - CONCLUSION: No acute cardiopulmonary abnormality is identified. Reji Shultz MD Carotid Artery Ultrasound 09/26/16 0000 Signed Impressions: Service Date/Time: Monday, September 26, 2016 18:54 - CONCLUSION: Hemodynamic profile is characteristic of less than 50%% stenosis bilaterally. Casper Parkinson MD Ankle X-Ray 09/26/16 0000 Signed Impressions: Service Date/Time: Monday, September 26, 2016 14:33 - CONCLUSION: Undermineralized bones with diffuse ankle soft tissue swelling. There is a possible nondisplaced lateral malleolus fracture. Reji Shultz MD Objective Remarks GENERAL: Alert, NAD. SKIN: Warm and dry. HEAD: Normocephalic. EYES: No scleral icterus. No injection or drainage. NECK: Supple, trachea midline. No JVD or lymphadenopathy. CARDIOVASCULAR: Regular rate and rhythm without murmurs, gallops, or rubs. RESPIRATORY: Breath sounds equal bilaterally. No accessory muscle use. GASTROINTESTINAL: Abdomen soft, non-tender, nondistended. MUSCULOSKELETAL: No cyanosis, or edema. Left leg in splint BACK: Nontender without obvious deformity. No CVA tenderness. A/P Problem List: (1) Frequent falls ICD Code: R29.6 Status: Acute (2) Gait instability ICD Code: R26.81 Status: Acute Assessment and Plan 76-year-old female with history of HTN, HLD, lumbar radiculopathy, neuropathy, presents after a fall at her [facility]. She also reports recent fall last 09/20, went to , diagnosed with ankle fracture, recommend splint, NWB, and f/up with ortho as outpatient. Frequent falls with gait imbalance: suspect multifactorial secondary to lumbar radiculopathy, neuropathy, and now with left ankle fracture in splint. -Head CT images reviewed, unremarkable -Carotid U/S reviewed and unremarkable -Consult PT --> recommends rehab. -fall precautions - Discussed with CM on 09/29/2016. Patient [facility] re[facility] on 09/30/2016. See CM note. Subacute Nondisplaced Fracture of Left Lateral Malleolus: ankle xray reviewed, shows diffuse ankle soft tissue swelling with nondisplaced lateral malleolus fracture. -Splint placed in the ED, will continue -NWB to E -pain control with [place] prn -outpatient f/up with orthopedics Hypertension/Hyperlipidemia: chronic -continue patient' Norvasc, statin -monitor BP, adjust antihypertensives as needed Depression: chronic -continue home meds including Zoloft and Trazodone Dysuria: patient reports dysuria however UA negative, afebrile, no leukocytosis ; appears patient was on Macrobid prior to arrival - repeat UA unremarkable. -cont Pyridium Hypoxia - Patient's O2 sat went down to 88% on room air. CT PE showed no evidence of PE. - Will continue O2 supplement as needed to keep O2 sat > 90%. DVT prophylaxis: Shanel Hanson DO Sep 29, 2016 12:02
[2016-09-29 15:35] VITALS: BP 131/59; PULSE 68; RESP 18; TEMP 97.8; O2SAT 96
[2016-09-29] MEDS: ENOXAPARIN SODIUM 40 MG/0.4 ML SYRINGE SQ SCH (17:17)
[2016-09-29 20:20] VITALS: BP 140/67; PULSE 72; RESP 16; TEMP 97.8; O2SAT 94
[2016-09-30] MEDS: ATORVASTATIN 10 MG TAB PO SCH (00:21)
[2016-09-30] MEDS: traZODone HCL 100 MG TAB PO SCH (00:21)
[2016-09-30] MEDS: TOLTERODINE TARTRATE 2 MG CAP LA PO SCH (00:22)
[2016-09-30] MEDS: SODIUM CHLORIDE 0.9% FLUSH 10 ML FLUSH IV FLUSH SCH ×2 (00:22→09:52)
[2016-09-30] MEDS: PHENAZOPYRIDINE HCL 100 MG TAB PO SCH ×3 (00:24→14:34)
[2016-09-30] MEDS: ACETAMINOPHEN/HYDROcodone 325 MG/5 MG TAB PO PRN ×3 (01:10→14:35)
[2016-09-30 01:12] VITALS: BP 159/97; PULSE 80; RESP 16; TEMP 97.6; O2SAT 95
[2016-09-30 04:13] VITALS: BP 129/56; PULSE 66; RESP 16; TEMP 97.2; O2SAT 95
[2016-09-30 08:00] VITALS: BP 111/57; PULSE 64; RESP 16; TEMP 97; O2SAT 94
[2016-09-30] MEDS: SERTRALINE HCL 100 MG TAB PO SCH (09:52)
[2016-09-30] MEDS: CHOLECALCIFEROL (VIT D3) 1000 UNIT TAB PO SCH (09:52)
[2016-09-30] MEDS: PANTOPRAZOLE SOD 40 MG DELAYED RELEASE TAB PO SCH (09:52)
[2016-09-30] MEDS: ASPIRIN EC 81 MG TABEC PO SCH (09:53)
[2016-09-30] MEDS ORDERED: PERC7.5T13 PO (11:13)
[2016-09-30] MEDS ORDERED: BISA10R RECTAL (11:13)
[2016-09-30] MEDS ORDERED: SENN8.6T15 PO (11:13)
[2016-09-30] MEDS ORDERED: PHEN-427 PO (11:13)
[2016-09-30] MEDS ORDERED: Lactulose Liq PO (11:13)
[2016-09-30] MEDS ORDERED: ENOX40P SQ (11:13)
--- NOTE | 2016-09-30 11:15 | HHI.DS ---
Discharge Summary Admission Date Sep 27, 2016 at 16:22 Discharge Date: Sep 30, 2016 Admitting Diagnosis AMS, GAIT IMPAIRMENT, FALLS (1) Frequent falls ICD Code: R29.6 Diagnosis: Principal (2) Gait instability ICD Code: R26.81 Diagnosis: Principal (3) Ankle fracture, left ICD Code: S82.892A Diagnosis: Principal Procedures NONE Brief History - From Admission patient is a 76 y/o female with history of hypertension,lumbar radiculopathy and dyslipidemia who was brought to ER after she fell at [facility]. she says that she fell last Sunday and was evaluated at [facility] and found to have ankle fracture. she was discharged home at the time. she says that she was instructed not to bear any weight on the left lower extremity- however she tried to walk yesterday when she fell again. she's complaining of some pain to the left foot. she denies any chest pain, sob or lightheadedness prior to the fall. she denies any loss of consciousness. she says that at times she feels dizzy.left foot pain was mild at the time of my evaluation. CBC/BMP: 09/27/16 0800 09/27/16 0800 Significant Findings Laboratory Tests Test 09/27/16 13:32 Urine Leukocyte Esterase TRACE (NEG) Urine Mucus FEW /lpf (OCC) Imaging Last Impressions CT Angiography 09/27/16 0000 Signed Impressions: Service Date/Time: Tuesday, September 27, 2016 20:08 - CONCLUSION: 1. The study is negative for pulmonary embolism. 2. Solitary enlarged subcarinal node is of uncertain significance. 3. Mild bilateral effusions in the fissures and mild bibasilar atelectasis. Casper Parkinson MD Head CT 09/26/16 1351 Signed Impressions: Service Date/Time: Monday, September 26, 2016 14:21 - CONCLUSION: 1. No acute intracranial abnormalities. Retention cyst right maxillary sinus. Alonso Alvarez MD Chest X-Ray 09/26/16 [id number] Signed Impressions: Service Date/Time: Monday, September 26, 2016 14:37 - CONCLUSION: No acute cardiopulmonary abnormality is identified. Reji Shultz MD Carotid Artery Ultrasound 09/26/16 0000 Signed Impressions: Service Date/Time: Monday, September 26, 2016 18:54 - CONCLUSION: Hemodynamic profile is characteristic of less than 50%% stenosis bilaterally. Casper Parkinson MD Ankle X-Ray 09/26/16 0000 Signed Impressions: Service Date/Time: Monday, September 26, 2016 14:33 - CONCLUSION: Undermineralized bones with diffuse ankle soft tissue swelling. There is a possible nondisplaced lateral malleolus fracture. Reji Shultz MD PE at Discharge GENERAL: Alert, NAD. SKIN: Warm and dry. HEAD: Normocephalic. EYES: No scleral icterus. No injection or drainage. NECK: Supple, trachea midline. No JVD or lymphadenopathy. CARDIOVASCULAR: Regular rate and rhythm without murmurs, gallops, or rubs. RESPIRATORY: Breath sounds equal bilaterally. No accessory muscle use. GASTROINTESTINAL: Abdomen soft, non-tender, nondistended. MUSCULOSKELETAL: No cyanosis, or edema. Left leg in splint BACK: Nontender without obvious deformity. No CVA tenderness. Transfer Summary patient is a 76 y/o female with history of hypertension,lumbar radiculopathy and dyslipidemia who was brought to ER after she fell at [facility]. she says that she fell last Sunday and was evaluated at [facility] and found to have ankle fracture. she was discharged home at the time. she says that she was instructed not to bear any weight on the left lower extremity- however she tried to walk yesterday when she fell again. she's complaining of some pain to the left foot. she denies any chest pain, sob or lightheadedness prior to the fall. she denies any loss of consciousness. she says that at times she feels dizzy.left foot pain was mild at the time of my evaluation. WORKING WITH PT WILL NEED SNF AT [place] DUE TO GAIT INSTABILITY CLEARED FOR DC TO SNF AT THIS TIME Pt update on day of discharge GENERAL: AWAKE ALERT AND ORIENTED SKIN: Warm and dry. HEAD: Atraumatic. Normocephalic. EYES: Pupils equal and round. No scleral icterus. No injection or drainage. ENT: No nasal bleeding or discharge. Mucous membranes pink and moist. NECK: Trachea midline. No JVD. CARDIOVASCULAR: Regular rate and rhythm. S1, S2 NO S3 OR S4 NO HEAVE OR THRILL OR RUB RESPIRATORY: No accessory muscle use. Clear to auscultation. Breath sounds equal bilaterally. GASTROINTESTINAL: Abdomen soft, non-tender, nondistended. Hepatic and splenic margins not palpable. MUSCULOSKELETAL: Extremities without clubbing, cyanosis, or edema. No obvious deformities. LEFT LOWER EXTREMITY IN SPLINT NEUROLOGICAL: Awake and alert. No obvious cranial nerve deficits. Motor grossly within normal limits. 4 out of 5 muscle strength in the arms and legs. Normal speech. PSYCHIATRIC: Appropriate mood and affect; insight and judgment normal. Hospital Course patient is a 76 y/o female with history of hypertension,lumbar radiculopathy and dyslipidemia who was brought to ER after she fell at [facility]. she says that she fell last Sunday and was evaluated at [facility] and found to have ankle fracture. she was discharged home at the time. she says that she was instructed not to bear any weight on the left lower extremity- however she tried to walk yesterday when she fell again. she's complaining of some pain to the left foot. she denies any chest pain, sob or lightheadedness prior to the fall. she denies any loss of consciousness. she says that at times she feels dizzy.left foot pain was mild at the time of my evaluation. WORKING WITH PT WILL NEED SNF AT [place] DUE TO GAIT INSTABILITY CLEARED FOR DC TO SNF AT THIS TIME Pt Condition on Discharge: Fair Discharge Disposition: Discharge to SNF Discharge Time: > 30 minutes Discharge Instructions DIET: Follow Instructions for: As Tolerated, No Restrictions Activities you can perform: Non Weight Bearing (LEFT FOOT/ANKLE) Follow up Referrals: Orthopedics - 2 Weeks PCP Follow-up - 2 Weeks New Medications: Commode 3-in-1 (Commode 3-in-1) 1 Mis Mis 1 EA .ROUTE DIRECTED #1 Ref 0 EA [place] Wheels/5 Adj (Walker [place] Wheels/5 Adj) 1 Mis Mis 1 EA .ROUTE DIRECTED #1 Ref 0 EA Bisacodyl Supp (Bisac-Evac Supp) 10 Mg Supp 10 MG RECTAL DAILY PRN SEVERE CONSITIPATION #30 TAB Enoxaparin Inj (Lovenox Inj) 40 Mg/0.4 Ml Syr 40 MG SQ Q24H Blood Clot Prevention #21 INJECTION Phenazopyridine HCl (Phenazopyridine HCl) 100 Mg Tab 100 MG PO Q8HR Bladder Spasm #30 TAB Sennosides (Senna Lax) 8.6 Mg Tab 17.2 MG PO Q12H PRN MODERATE - SEVERE CONSTIPATION #60 TAB ([Lactulose Liq]) 30 ML SYRP 30 ML PO DAILY PRN SEVERE CONSITIPATION ML Continued Medications: Amlodipine (Amlodipine) 10 Mg Tab 10 MG PO DAILY Blood Pressure Management #[address] (Aspir-81) 81 Mg Tabdr 81 MG PO DAILY Atorvastatin (Atorvastatin) 10 Mg Tab 10 MG PO HS Cholesterol Management #30 Ref 0 TAB Cholecalciferol (Vitamin D3) 1,000 Unit Tab 1000 UNITS PO DAILY Nutritional Supplement #1 Ref 0 BOTTLE Clotrimazole (Topical) (Anti-Fungal) 1 % Cre 1 APPLIC TOPICAL TID Gabapentin (Gabapentin) 600 Mg Tab 600 MG PO TID #90 Ref 0 TAB Oxycodone-Acetaminophen (Percocet) 7.5-325 mg Tab 1 TAB PO Q8HR PRN PAIN #30 Ref 0 TAB (This prescription has been renewed) Pantoprazole (Pantoprazole) 40 Mg Tab 40 MG PO DAILY Reflux #30 Ref 0 TAB Sertraline (Zoloft) 100 Mg Tab 100 MG PO DAILY #30 Ref 0 TAB Solifenacin (Vesicare) 5 Mg Tab 5 MG PO HS #30 Ref 0 TAB Trazodone (Trazodone) 100 Mg Tablet 100 MG PO HS #30 Ref 0 TAB Discontinued Medications: Nitrofurantoin Monohydrate Macrocrystals (Macrobid) 100 Mg Cap 100 MG PO BID Infection Ref 0 Manuel Cristina DO Sep 30, 2016 11:15
[2016-09-30] MEDS ORDERED: COMMODE 3-IN-11 MIS (11:18)
[2016-09-30] MEDS ORDERED: WALKER GLIDE WH1 MI1 (11:18)
[2016-09-30 12:00] VITALS: BP 137/62; PULSE 59; RESP 16; TEMP 97.3; O2SAT 93
--- NOTE | 2016-09-30 13:02 | HHI.DCPOC ---
Discharge Care Plan Diagnosis: (1) Frequent falls (2) Ankle fracture, left (3) Gait instability Your Health Problems Are: Loss of Movements Chronic Pain Goals to Promote Your Health * To prevent worsening of your condition and complications * To maintain your health at the optimal level Directions to Meet Your Goals Take your medications as prescribed Follow your dietary instruction Follow activity as directed Keep your appointments as scheduled Take your immunizations and boosters as scheduled If your symptoms worsen call your PCP, if no PCP go to Urgent Care Center or Emergency Room Smoking is Dangerous to Your Health. Avoid second hand smoke Call the 24-hour hour crisis hotline for domestic abuse at Manuel Russell DO Sep 30, 2016 13:02
== END 2016-09-30 16:22 | DRG 552 ==
LOC: NEPE 13:24 → NEDA 16:18 → INTOOBSV 16:18 → NEDA 16:18 → UNDOADMOB 16:18 → INTOOBSV 16:22 → OBSVTOIN 16:22 → NEPGCP 17:19 → NEDA 17:19 → OBSVTOIN 09-27 16:22 → N06A 09-27 22:19
PROVIDERS: ADMIT Hospitalist; ATTEND Hospitalist
DX: M51.16 Intervertebral disc disorders with radiculopathy, lumbar region (principal); E11.22 Type 2 diabetes mellitus with diabetic chronic kidney disease; G62.9 Polyneuropathy, unspecified; N18.3 Chronic kidney disease, stage 3 (moderate); R41.82 Altered mental status, unspecified; I12.9 Hypertensive chronic kidney disease with stage 1 through stage 4 chronic kidney disease, or unspecified chronic kidney disease; S82.65XD Nondisplaced fracture of lateral malleolus of left fibula, subsequent encounter for closed fracture with routine healing; R29.6 Repeated falls; W19.XXXD Unspecified fall, subsequent encounter; Z91.81 History of falling; N32.81 Overactive bladder; K21.9 Gastro-esophageal reflux disease without esophagitis; F32.9 Major depressive disorder, single episode, unspecified; M19.90 Unspecified osteoarthritis, unspecified site; W05.0XXA Fall from non-moving wheelchair, initial encounter; R26.9 Unspecified abnormalities of gait and mobility; E78.00 Pure hypercholesterolemia, unspecified; E78.5 Hyperlipidemia, unspecified; R09.02 Hypoxemia
CPT/HCPCS: 70450; 71010; 71275; 73610; 80053; 81001; 82550; 82948; 83605; 85025; 85610; 85730; 87040; 87086; 93005; 93880; 96365; 96366; 96372; G0378; G8987-GO; G8987-GP; G8988-GO; G8988-GP; J1650; J7030; P9612; Q9967

== ENCOUNTER 2017-04-20 09:30 | Observation (INO) | payer MEDICARE ==
[~2017-04-20] VITALS: Ht 165.1 cm; Wt 92.0 kg
[2017-04-20] VITALS (7 sets, daily range): BP systolic 130–178; BP diastolic 58–80; PULSE 61–75; RESP 15–20; TEMP 97.8–98.4; O2SAT 94–98
[~2017-04-20 09:30] MED LIST changes: +AMLO10TA2 PO; +ANTI1CRE6 TOPICAL; +ASPI81TA81 PO; +ATOR10TA15 PO; +BISA10R RECTAL; +COMMODE 3-IN-11 MIS; -DULO20 PO; +ENOX40P SQ; +GABA600T PO; -HYDR-2768 PO; -LORT7.5T3 PO; -LYRI150C PO; +Lactulose Liq PO; -MELO7.5T PO; +PANT40TA3 PO; +PERC7.5T13 PO; +PHEN-536 PO; -PREG75 PO; +SENN1TAB27 PO; -TOPR25TA2 PO; +TRAZ100T10 PO; +VESI5TAB2 PO; +VITA100064 PO; +WALKER GLIDE WH1 MI1; +ZOLO100T PO
[2017-04-20 10:34] LABS: AUTOMATED NEUTROPHIL # 7.6 TH/MM3 (1.8-7.7); BASOPHIL % 0.2 % (0.0-2.0); EOSINOPHIL # 0.1 TH/MM3 (0-0.4); EOSINOPHIL % 0.8 % (0.0-4.0); HEMATOCRIT 39.6 % (35.0-46.0); HEMOGLOBIN 13.2 GM/DL (11.6-15.3); LYMPH % 23.5 % (9.0-44.0); LYMPHOCYTE # 2.6 TH/MM3 (1.0-4.8); MEAN CELL VOLUME 89.2 FL (80.0-100.0); MEAN CORPUSCULAR HEMOGLOBIN 29.6 PG (27.0-34.0); MEAN CORPUSCULAR HGB CONC 33.2 % (32.0-36.0); MEAN PLATELET VOLUME 7.3 FL (7.0-11.0); MONO % 7.4 % (0.0-8.0); MONOCYTE # 0.8 TH/MM3 (0-0.9); NEUT % 68.1 % (16.0-70.0); PLATELET COUNT 197 TH/MM3 (150-450); RED BLOOD COUNT 4.45 MIL/MM3 (4.00-5.30); RED CELL DISTRIBUTION WIDTH 14.1 % (11.6-17.2); WHITE BLOOD COUNT 11.1 TH/MM3 (4.0-11.0)
--- NOTE | 2017-04-20 10:46 | RADRPT ---
EXAM DATE/TIME: 04/20/2017 10:21 [facility] COMPARISON: CHEST SINGLE AP, September 26, 2016, 14:37. INDICATIONS : Short of breath, weakness MEDICAL HISTORY : Cardiovascular disease. Hypertension SURGICAL HISTORY : Hysterectomy. ENCOUNTER: Initial ACUITY: 1 day PAIN SCORE: Non-responsive. LOCATION: Bilateral chest FINDINGS: A single view of the chest demonstrates the lungs to be symmetrically aerated without evidence of mas s, infiltrate or effusion. The cardiomediastinal contours are unremarkable. Osseous structures are intact. CONCLUSION: The lungs are clear. Casper Parkinson MD on April 20, 2017 at 10:44 Board Certified Radiologist. This report was verified electronically.
--- NOTE | 2017-04-20 10:50 | RADRPT ---
EXAM DATE/TIME: 04/20/2017 10:32 [facility] COMPARISON: CT BRAIN W/O CONTRAST, September 26, 2016, 14:21. INDICATIONS : Altered mental status RADIATION DOSE: 56.35 CTDIvol (mGy) MEDICAL HISTORY : Dementia. Cardiovascular disease Hypertension.Reflux, lumbar radiculopathy, Renal failure SURGICAL HISTORY : Appendectomy. Hysterectomy. ENCOUNTER: Initial ACUITY: 1 day PAIN SCALE: 4/10 LOCATION: Bilateral cranial TECHNIQUE: Multiple contiguous axial images were obtained of the head. Using automated exposure control and adj ustment of the mA and/or kV according to patient size, radiation dose was kept as low as reasonably a chievable to obtain optimal diagnostic quality images. DICOM format image data is available electro nically for review and comparison. FINDINGS: CEREBRUM: The ventricles are normal for age. No evidence of midline shift, mass lesion, hemorrhage or acute in farction. No extra-axial fluid collections are seen. POSTERIOR FOSSA: The cerebellum and brainstem are intact. The 4th ventricle is midline. The cerebellopontine angle i s unremarkable. EXTRACRANIAL: The visualized portion of the orbits is intact. Opacity in the right maxillary sinus can't stable fr om prior. SKULL: The calvaria is intact. No evidence of skull fracture. CONCLUSION: 1. No acute findings in the brain. 2. Right maxillary sinus disease. Casper Parkinson MD on April 20, 2017 at 10:47 Board Certified Radiologist. This report was verified electronically.
[2017-04-20 10:53] LABS: ALKALINE PHOSPHATASE 51 U/L (45-117); TOTAL BILIRUBIN ADULT 0.4 MG/DL (0.2-1.0); TOTAL PROTEIN 6.6 GM/DL (6.4-8.2)
[2017-04-20 10:56] LABS: ALBUMIN 3.2 GM/DL (3.4-5.0); ALT (GPT) 19 U/L (10-53); AST (GOT) 14 U/L (15-37); BICARBONATE 32.9 MEQ/L (21.0-32.0); BLOOD UREA NITROGEN 39 MG/DL (7-18); CHLORIDE 95 MEQ/L (98-107); CREATININE 0.87 MG/DL (0.50-1.00); GLOMERULAR FILTRATION RATE 63 ML/MIN (>89); GLUCOSE,RANDOM 79 MG/DL (74-106); SODIUM (NA) 133 MEQ/L (136-145)
--- NOTE | 2017-04-20 11:04 | PD ---
HPI Chief Complaint: Medical Clearance Time Seen by Provider: 09:52 Travel History International Travel<30 days: No Contact w/Intl Traveler<30days: No Traveled to known affect area: No History of Present Illness HPI This is a 77-year-old female with history of bipolar disease, presents today via her [facility] for reported nonresponsiveness. According to the daughter and the EMS report, when they went to check on her this morning, she was nonresponsive. Daughter states that when she talked her on the phone, she had repetitive answers when the daughter would ask her question she would repeat it in an echo format. Patient arrives here awake and answering questions. She states that she is not "crazy". The patient also reports that she only needs "cheeses in her life". She reports pain in her rectal area however will not allow us to examine it. She denies any other symptoms at this time. PFSH Past Medical History Arthritis: Yes Asthma: No Autoimmune Disease: No Blood Disorders: No Anxiety: No Depression: Yes Heart Rhythm Problems: No Cancer: No Cardiac Catheterization: No Cardiovascular Problems: Yes High Cholesterol: Yes Chemotherapy: No Chest Pain: No Congestive Heart Failure: No COPD: No Cerebrovascular Accident: No Dementia: Yes Diabetes: Yes (BORDERLINE) Patient Takes Glucophage: No Diminished Hearing: No Endocrine: No Gastrointestinal Disorders: Yes (CONSTIPATION ) GERD: Yes Glaucoma: No Genitourinary: Yes (overactive bladder) Headaches: No Hepatitis: No Hiatal Hernia: No Herniated Disk: Yes (DDD) Hypertension: Yes Immune Disorder: No Kidney Stones: No Musculoskeletal: Yes (lumbar radiculopathy) Neurologic: Yes (peripheral neuropathy) Psychiatric: No Reproductive: No Respiratory: No Myocardial Infarction: No Radiation Therapy: No Renal Failure: Yes (stage III chronic kidney disease) Seizures: No Sickle Cell Disease: No Sleep Apnea: No Thyroid Disease: No Ulcer: No Tetanus Vaccination: < 5 Years Influenza Vaccination: Yes ?: Not Menopausal: Yes Past Surgical History Abdominal Surgery: No AICD: No Appendectomy: Yes Cardiac Surgery: No Coronary Artery Bypass Graft: No Ear Surgery: No Endocrine Surgery: No Eye Surgery: No Genitourinary Surgery: No Gynecologic Surgery: No Hysterectomy: Yes Neurologic Surgery: No Oral Surgery: No Pacemaker: No Thoracic Surgery: No Other Surgery: Yes (LAMINECTOMY ) Social History Alcohol Use: No Tobacco Use: No Substance Use: No Allergies-Medications (Allergen,Severity, Reaction): Coded Allergies: amitriptyline (Unverified Allergy, Severe, 10/11/16) gabapentin (Unverified Allergy, Severe, 10/11/16) penicillin G (Unverified Allergy, Severe, 10/11/16) prochlorperazine (Unverified Allergy, Severe, 10/11/16) Reported Meds & Prescriptions Reported Meds & Active Scripts Active Phenazopyridine HCl 100 Mg Tab 100 Mg PO Q8HR Senna Lax (Sennosides) 8.6 Mg Tab 17.2 Mg PO Q12H PRN [Lactulose Liq] 30 ML Syrp 30 Ml PO DAILY PRN Bisac-Evac Supp (Bisacodyl) 10 Mg Supp 10 Mg RECTAL DAILY PRN Percocet (Oxycodone-Acetaminophen) 7.5-325 mg Tab 1 Tab PO Q8HR PRN Reported Novolin R Inj (Insulin Human Regular) 1,000 Unit/10 Ml Vial 0 SQ DIRECTED Sliding Scale As Directed. Ferrous Sulfate 325 Mg (65 Mg Iron) Tablet 325 Mg PO BIDPC Cefdinir 300 Mg Cap 300 Mg PO BID Ditropan (Oxybutynin Chloride) 5 Mg Tab 5 Mg PO HS Lisinopril 10 Mg Tab 10 Mg PO DAILY Hydrochlorothiazide 25 Mg Tab 25 Mg PO DAILY Amlodipine (Amlodipine Besylate) 5 Mg Tab 5 Mg PO DAILY Vitamin D3 (Cholecalciferol) 1,000 Unit Tab 1,000 Units PO DAILY Vesicare (Solifenacin) 5 Mg Tab 5 Mg PO HS Trazodone (Trazodone HCl) 100 Mg Tablet 100 Mg PO HS Zoloft (Sertraline HCl) 100 Mg Tab 100 Mg PO DAILY Pantoprazole (Pantoprazole Sodium) 40 Mg Tab 40 Mg PO DAILY Gabapentin 600 Mg Tab 600 Mg PO TID Anti-Fungal (Clotrimazole (Topical)) 1 % Cre 1 Applic TOPICAL TID Atorvastatin (Atorvastatin Calcium) 10 Mg Tab 10 Mg PO HS Aspir-81 (Aspirin) 81 Mg Tabdr 81 Mg PO DAILY Review of Systems ROS Limitations: Altered Mental Status, Poor Historian Except as stated in HPI: all other systems reviewed are Neg General / Constitutional: No: Fever, Chills Eyes: No: Diploplia, Blurred Vision HENT: No: Headaches Cardiovascular: No: Chest Pain or Discomfort, Palpitations Respiratory: No: Cough, Shortness of Breath Gastrointestinal: Positive: Other, No: Nausea, Abdominal Pain Genitourinary: No: Dysuria, Incontinence Musculoskeletal: Positive: Weakness, No: Pain Neurologic: Positive: Weakness (Generalized), Change in Mentation ( generalized ), No: Headache, Incontinence Physical Exam Narrative GENERAL: Well-developed well-nourished female in no acute respiratory distress. SKIN: Focused skin assessment warm/dry. HEAD: Atraumatic. Normocephalic. EYES: Pupils equal and round. No scleral icterus. No injection or drainage. ENT: N Mucous membranes pink and moist. NECK: Trachea midline. Supple. CARDIOVASCULAR: Regular rate and rhythm. No murmur appreciated. RESPIRATORY: No accessory muscle use. Clear to auscultation. Breath sounds equal bilaterally. GASTROINTESTINAL: Abdomen soft, non-tender, nondistended. Patient refusing to allow me to examine her rectum. MUSCULOSKELETAL: No obvious deformities. No clubbing. No cyanosis. No edema. NEUROLOGICAL: Awake and confused. Patient has episodes where she will repeat the same thing several times. And she will have periods of lucid intervals. No obvious cranial nerve deficits. Motor grossly within normal limits. Normal speech. Data Data Last Documented VS Vital Signs Date Time Temp Pulse Resp B/P (MAP) Pulse Ox O2 Delivery O2 Flow Rate FiO2 04/20/17 12:00 62 15 170/70 (103) 97 Room Air 04/20/17 09:43 98.1 Orders Orders Complete Blood Count With Diff (04/20/17 09:52) Comprehensive Metabolic Panel (04/20/17 09:52) Urinalysis - C+S If Indicated (04/20/17 09:52) Chest, Single Ap (04/20/17 09:52) Ct Brain W/O Iv Contrast(Rout) (04/20/17 09:52) Iv Access Insert/Monitor (04/20/17 09:52) Ecg Monitoring (04/20/17 09:52) Oximetry (04/20/17 09:52) Psych Screen (04/20/17 10:09) Oxycodone-Acetamin 5-325 Mg (Percocet (04/20/17 11:45) Sodium Chlorid 0.9% 500 Ml Inj (Ns 500 M (04/20/17 12:45) Diet Regular Basic (04/20/17 Lunch) Labs Laboratory Tests Test 04/20/17 09:50 04/20/17 10:20 White Blood Count 11.1 TH/MM3 Red Blood Count 4.45 MIL/MM3 Hemoglobin 13.2 GM/DL Hematocrit 39.6 % Mean Corpuscular Volume 89.2 FL Mean Corpuscular Hemoglobin 29.6 PG Mean Corpuscular Hemoglobin Concent 33.2 % Red Cell Distribution Width 14.1 % Platelet Count 197 TH/MM3 Mean Platelet Volume 7.3 FL Neutrophils (%) (Auto) 68.1 % Lymphocytes (%) (Auto) 23.5 % Monocytes (%) (Auto) 7.4 % Eosinophils (%) (Auto) 0.8 % Basophils (%) (Auto) 0.2 % Neutrophils # (Auto) 7.6 TH/MM3 Lymphocytes # (Auto) 2.6 TH/MM3 Monocytes # (Auto) 0.8 TH/MM3 Eosinophils # (Auto) 0.1 TH/MM3 Basophils # (Auto) 0.0 TH/MM3 CBC Comment DIFF FINAL Differential Comment Blood Urea Nitrogen 39 MG/DL Creatinine 0.87 MG/DL Random Glucose 79 MG/DL Total Protein 6.6 GM/DL Albumin 3.2 GM/DL Calcium Level 9.0 MG/DL Alkaline Phosphatase 51 U/L Aspartate Amino Transf (AST/SGOT) 14 U/L Alanine Aminotransferase (ALT/SGPT) 19 U/L Total Bilirubin 0.4 MG/DL Sodium Level 133 MEQ/L Potassium Level 4.4 MEQ/L Chloride Level 95 MEQ/L Carbon Dioxide Level 32.9 MEQ/L Anion Gap 5 MEQ/L Estimat Glomerular Filtration Rate 63 ML/MIN Urine Color YELLOW Urine Turbidity HAZY Urine pH 7.0 Urine Specific [place] 1.015 Urine Protein NEG mg/dL Urine Glucose (UA) NEG mg/dL Urine Ketones NEG mg/dL Urine Occult Blood TRACE Urine Nitrite NEG Urine Bilirubin NEG Urine Urobilinogen LESS THAN 2.0 MG/DL Urine Leukocyte Esterase NEG Urine RBC LESS THAN 1 /hpf Urine WBC 1 /hpf Urine Squamous Epithelial Cells 11 /hpf Urine Amorphous Sediment OCC Urine Bacteria RARE /hpf Microscopic Urinalysis Comment CULT NOT INDICATED MDM Medical Decision Making Medical Screen Exam Complete: Yes Emergency Medical Condition: Yes Differential Diagnosis Metabolic derangement versus acute exacerbation of bipolar versus infectious process. Narrative Course 77-year-old female history bipolar disorder, brought in via EMS for altered mental status from [facility]. According to the patient is daughter and EMS crew she was minimally responsive at the [facility]. When she arrives here she is awake able to questions and having repetitive questions. CT brain chest x-ray are negative for acute process she is dehydrated with a BUN of 39 and a creatinine of 0.87. She will be admitted under observation for IV fluid resuscitation. She will likely need a neurology consult for possible early onset dementia in addition to her bipolar disorder. Case was discussed with Dr. Smith, [facility], who is agreeable to the plan. Diagnosis Primary Impression: Altered mental status Additional Impressions: Acute kidney injury History of bipolar disorder Morris Fuller MD Apr 20, 2017 11:04
[2017-04-20 11:09] LABS: AMORPHOUS SEDIMENT, URINE OCC; BACTERIA, URINE RARE /hpf; BILIRUBIN, URINE NEG (NEG); BLOOD, URINE TRACE (NEG); GLUCOSE,URINE NEG (NEG); KETONE, URINE NEG (NEG); NITRITE,URINE NEG (NEG); SQUAMOUS EPITHELIAL CELL URINE 11 /hpf (0-5); URINE COLOR YELLOW (YELLW/STRAW); URINE LEUKOCYTE ESTERASE NEG (NEG)
[2017-04-20] MEDS ORDERED: FERR325T18 PO (11:41)
[2017-04-20] MEDS ORDERED: NOVORP2 SQ (11:41)
[2017-04-20] MEDS ORDERED: AMLO5TAB2 PO (11:41)
[2017-04-20] MEDS ORDERED: CEFD300C PO (11:41)
[2017-04-20] MEDS ORDERED: HYDR25TA5 PO (11:41)
[2017-04-20] MEDS ORDERED: LISI10TA3 PO (11:41)
[2017-04-20] MEDS ORDERED: OXYB5TAB8 PO (11:41)
[2017-04-20] MEDS ORDERED: oxyCODONE/ACETAMINOPHEN 5 MG/325 MG TAB PO ONE (11:45)
[2017-04-20] MEDS ORDERED: SODIUM CHLORID 0.9% 500 ML INJ 500 ML IV ONE (12:45)
[2017-04-20] MEDS ORDERED: GLUCAGON 1 MG/ML VIAL OTHER PRN (14:30)
[2017-04-20] MEDS ORDERED: DEXTROSE 50% IN WATER 50 ML VIAL(D50) IV PUSH PRN (14:30)
--- NOTE | 2017-04-20 14:40 | HHI.HP ---
[facility] No Primary Care Physician Admission Diagnosis altered sensorium, dehydration, bipolar disorder by hx. Diagnoses: (1) Altered mental status Diagnosis: Principal Chief Complaint: altered mental status Travel History International Travel<30 Days: No Contact w/Intl Traveler <30 Da: No Traveled to Known Affected Are: No History of Present Illness patient is a 77 y/o female with history of bipolar disorder,spinal stenosis, hypertension,dyslipidemia and questionable diabetes, who was brought to ER with altered mental status. the daughter who provided most of the information said that she had flu-like symptoms for a few weeks. she was just treated with steroids and antibiotics. she was recently admitted to [facility] and was treated for possible pneumonia and UTI. the daughter says that she hasn't been feeling well since then. she says that she noticed that she's been forgetful since summer and it seems that its' been getting worse recently.she fell a couple of times last night. there's no history of fever or chills. although she has occasional cough. she denies any chest pain or abdominal pain. the daughter says that she had anemia some blood in the stool last week when she was in the hospital for which she was started on ferrous sulfate. Review of Systems ROS Limitations: Poor Historian Past Family Social History Past Medical History hypertension/ spinal stenosis/ bipolar disorder/ UTI's/ questionable diabetes Past Surgical History spinal surgery/ hysterectomy. Reported Medications Phenazopyridine HCl 100 Mg Tab 100 Mg PO Q8HR Senna Lax (Sennosides) 8.6 Mg Tab 17.2 Mg PO Q12H PRN [Lactulose Liq] 30 ML Syrp 30 Ml PO DAILY PRN Bisac-Evac Supp (Bisacodyl) 10 Mg Supp 10 Mg RECTAL DAILY PRN Percocet (Oxycodone-Acetaminophen) 7.5-325 mg Tab 1 Tab PO Q8HR PRN Reported Novolin R Inj (Insulin Human Regular) 1,000 Unit/10 Ml Vial 0 SQ DIRECTED Sliding Scale As Directed. Ferrous Sulfate 325 Mg (65 Mg Iron) Tablet 325 Mg PO BIDPC Cefdinir 300 Mg Cap 300 Mg PO BID Ditropan (Oxybutynin Chloride) 5 Mg Tab 5 Mg PO HS Lisinopril 10 Mg Tab 10 Mg PO DAILY Hydrochlorothiazide 25 Mg Tab 25 Mg PO DAILY Amlodipine (Amlodipine Besylate) 5 Mg Tab 5 Mg PO DAILY Vitamin D3 (Cholecalciferol) 1,000 Unit Tab 1,000 Units PO DAILY Vesicare (Solifenacin) 5 Mg Tab 5 Mg PO HS Trazodone (Trazodone HCl) 100 Mg Tablet 100 Mg PO HS Zoloft (Sertraline HCl) 100 Mg Tab 100 Mg PO DAILY Pantoprazole (Pantoprazole Sodium) 40 Mg Tab 40 Mg PO DAILY Gabapentin 600 Mg Tab 600 Mg PO TID Anti-Fungal (Clotrimazole (Topical)) 1 % Cre 1 Applic TOPICAL TID Atorvastatin (Atorvastatin Calcium) 10 Mg Tab 10 Mg PO HS Aspir-81 (Aspirin) 81 Mg Tabdr 81 Mg PO DAILY Allergies: Coded Allergies: amitriptyline (Unverified Allergy, Severe, 10/11/16) gabapentin (Unverified Allergy, Severe, 10/11/16) penicillin G (Unverified Allergy, Severe, 10/11/16) prochlorperazine (Unverified Allergy, Severe, 10/11/16) Active Ordered Medications Inpatient Medications Oxycodone/ Acetaminophen (Percocet 5-325 Mg) 1 tab ONCE ONCE PO Last administered on 04/20/17at 11:54; Start 04/20/17 at 11:45; Stop 04/20/17 at 11:46 ; Status DC Sodium Chloride 500 ml @ 500 mls/hr BOLUS ONCE IV Last administered on at 12:52; Start 04/20/17 at 12:45; Stop 04/20/17 at 13:44; Status DC Social History no smoking. [facility] resident. Physical Exam Vital Signs Vital Signs Date Time Temp Pulse Resp B/P (MAP) Pulse Ox O2 Delivery O2 Flow Rate FiO2 04/20/17 14:00 64 18 138/58 (84) 98 Room Air 04/20/17 12:00 62 15 170/70 (103) 97 Room Air 04/20/17 11:00 62 18 174/74 (107) 97 Room Air 04/20/17 09:43 98.1 61 18 178/77 (110) 97 Physical Exam GENERAL: elderly female, in no apparent distress. SKIN: No rashes, ecchymoses or lesions. Cool and dry. HEAD: Atraumatic. Normocephalic. No temporal or scalp tenderness. EYES: Pupils equal round and reactive. Extraocular motions intact. No scleral icterus. No injection or drainage. ENT: Nose without bleeding, purulent drainage or septal hematoma. Throat without erythema, tonsillar hypertrophy or exudate. Uvula midline. Airway patent. NECK: Trachea midline. No JVD or lymphadenopathy. Supple, nontender, no meningeal signs. CARDIOVASCULAR: Regular rate and rhythm without murmurs, gallops, or rubs. RESPIRATORY: Clear to auscultation. Breath sounds equal bilaterally. No wheezes , rales, or rhonchi. GASTROINTESTINAL: Abdomen soft, non-tender, nondistended. No hepato-splenomegaly , or palpable masses. No guarding. MUSCULOSKELETAL: Extremities without clubbing, cyanosis, or edema. No joint tenderness, effusion, or edema noted. No calf tenderness. Negative Homans sign bilaterally. NEUROLOGICAL: Awake and alert. Laboratory Laboratory Tests Test 04/20/17 09:50 04/20/17 10:20 White Blood Count 11.1 Red Blood Count 4.45 Hemoglobin 13.2 Hematocrit 39.6 Mean Corpuscular Volume 89.2 Mean Corpuscular Hemoglobin 29.6 Mean Corpuscular Hemoglobin Concent 33.2 Red Cell Distribution Width 14.1 Platelet Count 197 Mean Platelet Volume 7.3 Neutrophils (%) (Auto) 68.1 Lymphocytes (%) (Auto) 23.5 Monocytes (%) (Auto) 7.4 Eosinophils (%) (Auto) 0.8 Basophils (%) (Auto) 0.2 Neutrophils # (Auto) 7.6 Lymphocytes # (Auto) 2.6 Monocytes # (Auto) 0.8 Eosinophils # (Auto) 0.1 Basophils # (Auto) 0.0 CBC Comment DIFF FINAL Differential Comment Blood Urea Nitrogen 39 Creatinine 0.87 Random Glucose 79 Total Protein 6.6 Albumin 3.2 Calcium Level 9.0 Alkaline Phosphatase 51 Aspartate Amino Transf (AST/SGOT) 14 Alanine Aminotransferase (ALT/SGPT) 19 Total Bilirubin 0.4 Sodium Level 133 Potassium Level 4.4 Chloride Level 95 Carbon Dioxide Level 32.9 Anion Gap 5 Estimat Glomerular Filtration Rate 63 Urine Color YELLOW Urine Turbidity HAZY Urine pH 7.0 Urine Specific [place] 1.015 Urine Protein NEG Urine Glucose (UA) NEG Urine Ketones NEG Urine Occult Blood TRACE Urine Nitrite NEG Urine Bilirubin NEG Urine Urobilinogen LESS THAN 2.0 Urine Leukocyte Esterase NEG Urine RBC LESS THAN 1 Urine WBC 1 Urine Squamous Epithelial Cells 11 Urine Amorphous Sediment OCC Urine Bacteria RARE Microscopic Urinalysis Comment CULT NOT INDICATED Result Diagram: 04/20/17 0950 04/20/1750 Imaging Last Impressions Head CT 04/20/17951 Signed Impressions: Service Date/Time: Thursday, April 20, 2017 10:32 - CONCLUSION: 1. No acute findings in the brain. 2. Right maxillary sinus disease. Casper Parkinson MD Chest X-Ray 04/20/17951 Signed Impressions: Service Date/Time: Thursday, April 20, 2017 10:21 - CONCLUSION: The lungs are clear. MD Blake Jamil VTE Risk Assessment Caprini VTE Risk Assessment: Mod/High Risk (score >= 2) Caprini Risk Assessment Model Point Value = 1 Point Value = 2 Point Value = 3 Point Value = 5 Age 41-60 Minor surgery BMI > 25 kg/m2 Swollen legs Varicose veins or History of unexplained or recurrent spontaneous Oral contraceptives or hormone replacement Sepsis (< 1 month) Serious lung disease, including pneumonia (< 1 month) Abnormal pulmonary function Acute myocardial infarction Congestive heart failure (< 1 month) History of inflammatory bowel disease Medical patient at bed rest Age 61-74 Arthroscopic surgery Major open surgery (> 45 min) Laparoscopic surgery (> 45 min) Malignancy Confined to bed (> 72 hours) Immobilizing plaster cast Central venous access Age >= 75 History of VTE Family history of VTE Factor V Leiden Prothrombin [id number] Lupus anticoagulant Anticardiolipin antibodies Elevated serum homocysteine Heparin-induced thrombocytopenia Other congenital or acquired thrombophilia Stroke (< 1 month) Elective arthroplasty Hip, pelvis, or leg fracture Acute spinal cord injury (< 1 month) Prophylaxis Regimen Total Risk Factor Score Risk Level Prophylaxis Regimen 0-1 Low Early ambulation 2 Moderate Order ONE of the following: *Sequential Compression Device (SCD) *Heparin 5000 units SQ BID 3-4 Higher Order ONE of the following medications: *Heparin 5000 units SQ TID *Enoxaparin/Lovenox 40 mg SQ daily (WT < 150 kg, CrCl > 30 mL/min) *Enoxaparin/Lovenox 30 mg SQ daily (WT < 150 kg, CrCl > 10-29 mL/min) *Enoxaparin/Lovenox 30 mg SQ BID (WT < 150 kg, CrCl > 30 mL/min) AND/OR *Sequential Compression Device (SCD) 5 or more Highest Order ONE of the following medications: *Heparin 5000 units SQ TID (Preferred with Epidurals) *Enoxaparin/Lovenox 40 mg SQ daily (WT < 150 kg, CrCl > 30 mL/min) *Enoxaparin/Lovenox 30 mg SQ daily (WT < 150 kg, CrCl > 10-29 mL/min) *Enoxaparin/Lovenox 30 mg SQ BID (WT < 150 kg, CrCl > 30 mL/min) AND *Sequential Compression Device (SCD) Assessment and Plan Assessment and Plan A/P - altered mental status with history of bipolar disorder CT of the head with no acute abnormality- check TSH,B12 and RPR- consult neurology and psych. -frequent falls/ with history of spinal stenosis fall precautions/ consult PT- neurology eval as noted above. -hypertension/ dyslipidemia; resume home meds. -questionable diabetes mellitus; check A1c- accu-check with SSI -DVT prophylaxis with SCD's -case management consult for dc planning. Discussed Condition With the ER physician, the patient and her daughter. Problem Qualifiers (1) Altered mental status: Qualified Codes: R41.82 - Altered mental status, unspecified Luis Moran MD Apr 20, 2017 14:39
[2017-04-20] MEDS: INSULIN ASPART SUPPLEMENTAL SCALE SQ SCH ×2 (17:00→21:00)
[2017-04-20] MEDS: GABAPENTIN 300 MG CAP PO SCH (17:26)
[2017-04-20] MEDS ORDERED: GADODIAMIDE PF 287 MG/ML 5 ML VIAL (for RAD MRI) IV PUSH ONE (19:04)
[2017-04-20] MEDS: ATORVASTATIN 10 MG TAB PO SCH (19:56)
[2017-04-20] MEDS: OXYBUTYNIN CHLORIDE 5 MG TAB PO SCH (19:56)
[2017-04-20] MEDS: traZODone HCL 100 MG TAB PO SCH (19:56)
[2017-04-20] MEDS ORDERED: NON-FORMULARY DRUG (Solifenacin (Vesicare) 5 MG) PO SCH (21:00)
[2017-04-20] MEDS: LORazepam 2 MG/ML VIAL IV PUSH PRN (21:29)
[2017-04-20] MEDS: PHENAZOPYRIDINE HCL 100 MG TAB PO SCH (22:00)
[2017-04-21 02:25] VITALS: BP 140/80; PULSE 63; RESP 18; TEMP 97.4; O2SAT 95
[2017-04-21] MEDS: PHENAZOPYRIDINE HCL 100 MG TAB PO SCH ×2 (06:00→17:50)
[2017-04-21] MEDS: LORazepam 2 MG/ML VIAL IV PUSH PRN (07:45)
[2017-04-21 08:00] VITALS: BP 129/60; PULSE 73; RESP 17; TEMP 95.4; O2SAT 91
[2017-04-21] MEDS: INSULIN ASPART SUPPLEMENTAL SCALE SQ SCH ×4 (08:50→21:00)
[2017-04-21] MEDS: PANTOPRAZOLE SOD 40 MG DELAYED RELEASE TAB PO SCH (10:20)
[2017-04-21] MEDS: GABAPENTIN 300 MG CAP PO SCH ×3 (10:20→18:34)
[2017-04-21] MEDS: amLODIPine BESYLATE 5 MG TAB PO SCH (10:21)
[2017-04-21] MEDS: LISINOPRIL 10 MG TAB PO SCH (10:21)
[2017-04-21] MEDS: SERTRALINE HCL 100 MG TAB PO SCH (10:21)
[2017-04-21] MEDS: ASPIRIN EC 81 MG TABEC PO SCH (10:21)
[2017-04-21] MEDS: HYDROCHLOROTHIAZIDE 25 MG TAB PO SCH (10:21)
[2017-04-21 12:00] VITALS: BP 143/65; PULSE 65; RESP 17; TEMP 96.5; O2SAT 92
--- NOTE | 2017-04-21 12:31 | MB ---
cc: RAN DAUGHERTY M.D. DATE OF CONSULTATION: 04/21/2017. REASON FOR CONSULTATION: She is a 77-year-old woman seen in neurological consultation because of confusion, encephalopathy, lethargy. HISTORY OF PRESENT ILLNESS: The patient carries a diagnosis of bipolar disorder. She has had some dementia for a year at least. The daughter describes that they brought her here from [facility] where she lived in an assisted living facility and this was in August of last year. [facility] because of her overall medical problems and she was subsequently transferred here. She had recent pneumonia and a urinary tract infection and was treated at the [facility]. She has been treated for a chronic cough. She became more obtunded and was brought to the hospital. PAST MEDICAL HISTORY: Her past medical history includes: 1. Diabetes mellitus. 2. Hypertension. 3. Depression. 4. Hyperlipidemia. MEDICATIONS: 1. She takes a baby aspirin. 2. Atorvastatin. 3. Gabapentin. The dose appears to be 600 three times a day. 4. Protonix. 5. Zoloft. 6. Trazodone. 7. Vesicare. 8. Amlodipine. 9. Hydrochlorothiazide. 10. Lisinopril. 11. Ditropan. 12. Cefdinir. 13. Ferrous sulfate. 14. Novolin. NEUROLOGICAL EXAMINATION: On exam, the patient was sleep, lethargic and with some stimulation she actually became quite alert and the daughter was at bedside. The patient knew the fact that she was in the hospital though she thought this is [facility]. She remembers something about the night as she felt something wrong about putting her in diapers. She knows the month, the year and recognized the daughter. She knows her age. She at least briefly talked about her background. She moves all four extremities with some generalized weakness, especially in the lower extremities with some arthritic joint disease and absent muscle stretch reflexes. Ocular movements and visual ceron are full. LABORATORY STUDIES: The CBC was normal except for a white count of 11.1. Sodium 133, potassium 4.4, BUN high at 39, creatinine 0.87. B12 was 650. TSH was normal. ASSESSMENT: 1. Metabolic encephalopathy. 2. Dementia. 3. A long psychiatric history of bipolar disorder on multiple medications. Discussed with the daughter and the patient herself. The combination of medications, infectious processes, underlying dementia, will aggravate the current cognitive status and hopefully with reduction on these concerns, would expect her mentation to improve significantly. If her cognitive status does not improve, then we could arrange for an MRI brain for follow up, though I do not think this will be necessary right at this point. Please call for re-evaluation depending upon the clinical course. Thank you for asking us to assist in her care. MD YAMILET Mujica/ALEXA /10:11 AM /12:08 PM
--- NOTE | 2017-04-21 12:35 | PD.PSY.CON ---
Provisional Diagnosis Admission Date Apr 20, 2017 at 14:25 [place] I. 1. Delirium due to general medical condition 2. History of bipolar disorder, present status unclear [place] II. Deferred History of Present Illness Service Psychiatry Consult Requested By Dr. Moran Reason for Consult Bipolar disorder/AMS Primary Care Physician No Primary Care Physician HPI Ms. Blackmon is a 77-year-old female with a history of bipolar disorder brought into the emergency department from her [facility] facility with AMS. Patient has been admitted to the CDU for observation. Neurological consultation has been obtained. Reviewing the electronic medical record, I see no previous psychiatric contact within our system. Patient seen and examined. Chart reviewed. MAR from patient's facility reviewed, and I note that she was receiving Zoloft and trazodone there. Discussed with nursing staff. Patient was reportedly somewhat agitated this morning and was medicated with Ativan and consequently is somewhat sedated at the time of my evaluation. She is able to describe her mood on my examination as "good." When I ask about audiovisual hallucinations, she says "stop at Dr., I'm not crazy." She does not verbalize any suicidal or homicidal ideation. I did endeavor to perform cognitive screening with MOCA, but she is unable to participate secondary to sedation. She does awaken sharply when daughter mentions possible dementia diagnosis and says "no dementia! No dementia! My mind is sharper than ever." Psychiatric interview is otherwise quite limited because of level of sedation, and I'm unable to obtain any meaningful past psychiatric, family, chemical dependency or social history from the patient for the same reason. Patient's daughter is at the bedside. She relates that she is a former nurse from our child psychiatric unit. She tells me that the patient has a history of bipolar disorder but has been out of psychiatric contact for several years. She does have a history of psychiatric admissions and suicide attempts in the past, none recent. Family history is unclear. There is no known history of substance use issues in the patient. Patient is originally from [facility] per daughter. Daughter relates that the patient was recently hospitalized at [facility] and was noted to be somewhat grandiose with poor sleep. Daughter also notes that the patient has been increasingly forgetful since about July 2016. She has not recently been making any suicidal or violent statements. Review of Systems ROS Limitations: Altered Mental Status, Poor Historian Other Limited ROS secondary to sedation Past Family Social History Coded Allergies: amitriptyline (Unverified Allergy, Severe, 10/11/16) gabapentin (Unverified Allergy, Severe, 10/11/16) penicillin G (Unverified Allergy, Severe, 10/11/16) prochlorperazine (Unverified Allergy, Severe, 10/11/16) Past Medical History See electronic medical record Active Scripts Phenazopyridine HCl (Phenazopyridine HCl) 100 Mg Tab, 100 MG PO Q8HR for Bladder Spasm, #30 TAB Prov:Manuel Russell DO 09/30/16 Sennosides (Senna Lax) 8.6 Mg Tab, 17.2 MG PO Q12H Y for MODERATE - SEVERE CONSTIPATION, #60 TAB Prov:Manuel Russell DO 09/30/16 [Lactulose] 30 ML SYRP No Conflict Check, 30 ML PO DAILY Y for SEVERE CONSITIPATION, ML Prov:Manuel Russell DO 09/30/16 Bisacodyl Supp (Bisac-Evac Supp) 10 Mg Supp, 10 MG RECTAL DAILY Y for SEVERE CONSITIPATION, #30 TAB Prov:Manuel Russell DO 09/30/16 Oxycodone-Acetaminophen (Percocet) 7.5-325 mg Tab, 1 TAB PO Q8HR Y for PAIN, # 30 TAB 0 Refills Prov:Manuel Russell DO 09/30/16 Reported Medications Insulin Human Regular Inj (Novolin R Inj) 1,000 Unit/10 Ml Vial, 0 SQ DIRECTED for Blood Sugar Management, #10 ML 0 Refills Sliding Scale As Directed. 04/20/17 Ferrous Sulfate (Ferrous Sulfate) 325 Mg (65 Mg Iron) Tablet, 325 MG PO BIDPC for Nutritional Supplement, #60 TAB 0 Refills 04/20/17 Cefdinir (Cefdinir) 300 Mg Cap, 300 MG PO BID for Infection, CAP 0 Refills 04/20/17 Oxybutynin (Ditropan) 5 Mg Tab, 5 MG PO HS for Urinary Symptom Managemen, #60 TAB 0 Refills 04/20/17 Lisinopril (Lisinopril) 10 Mg Tab, 10 MG PO DAILY, #30 TAB 0 Refills 04/20/17 Hydrochlorothiazide (Hydrochlorothiazide) 25 Mg Tab, 25 MG PO DAILY, #30 TAB 0 Refills 04/20/17 Amlodipine (Amlodipine) 5 Mg Tab, 5 MG PO DAILY for Blood Pressure Management, # 30 TAB 0 Refills 04/20/17 Cholecalciferol (Vitamin D3) 1,000 Unit Tab, 1000 UNITS PO DAILY for Nutritional Supplement, #1 BOTTLE 0 Refills 09/26/16 Solifenacin (Vesicare) 5 Mg Tab, 5 MG PO HS, #30 TAB 0 Refills 09/26/16 Trazodone (Trazodone) 100 Mg Tablet, 100 MG PO HS, #30 TAB 0 Refills 09/26/16 Sertraline (Zoloft) 100 Mg Tab, 100 MG PO DAILY, #30 TAB 0 Refills 09/26/16 Pantoprazole (Pantoprazole) 40 Mg Tab, 40 MG PO DAILY for Reflux, #30 TAB 0 Refills 09/26/16 Gabapentin (Gabapentin) 600 Mg Tab, 600 MG PO TID, #90 TAB 0 Refills 09/26/16 Clotrimazole (Topical) (Anti-Fungal) 1 % Cre, 1 APPLIC TOPICAL TID 09/26/16 Atorvastatin (Atorvastatin) 10 Mg Tab, 10 MG PO HS for Cholesterol Management, # 30 TAB 0 Refills 09/26/[address] (Aspir-81) 81 Mg Tabdr, 81 MG PO DAILY 09/26/16 Discontinued Reported Medications Amlodipine (Amlodipine) 10 Mg Tab, 10 MG PO DAILY for Blood Pressure Management , #30 TAB 0 Refills 09/26/16 Discontinued Scripts Commode 3-in-1 (Commode 3-in-1) 1 Mis Mis, 1 EA .ROUTE DIRECTED, #1 EA 0 Refills Prov:Manuel Russell DO 09/30/16 [place] Wheels/5 Adj (Walker [place] Wheels/5 Adj) 1 Mis Mis, 1 EA .ROUTE DIRECTED, #1 EA 0 Refills Prov:Manuel Russell DO 09/30/16 Enoxaparin Inj (Lovenox Inj) 40 Mg/0.4 Ml Syr, 40 MG SQ Q24H for Blood Clot Prevention, #21 INJECTION Prov:Manuel Russell DO 09/30/16 Current Medications Medications (Trade) Dose Ordered Sig/Sanaz Route Start Time Stop Time Status Last Admin (D50w (Vial) Inj) 50 ml UNSCH PRN IV PUSH 04/20/17 14:30 (Glucagon Inj) 1 mg UNSCH PRN OTHER 04/20/17 14:30 (NovoLOG SUPPLEMENTAL SCALE) 1 ACHS SLIDING SCALE SQ 04/20/17 17:00 (Norvasc) 5 mg DAILY PO 04/21/17 09:00 04/21/17 10:21 (Ecotrin Ec) 81 mg DAILY PO 04/21/17 09:00 04/21/17 10:21 (Lipitor) 10 mg HS PO 04/20/17 21:00 04/20/17 19:56 (Neurontin) 600 mg TID PO 04/20/17 18:00 04/21/17 10:20 (Hydrodiuril) 25 mg DAILY PO 04/21/17 09:00 04/21/17 10:21 (Prinivil) 10 mg DAILY PO 04/21/17 09:00 04/21/17 10:21 (Ditropan) 5 mg HS PO 04/20/17 21:00 04/20/17 19:56 (Protonix) 40 mg DAILY PO 04/21/17 09:00 04/21/17 10:20 (Pyridium) 100 mg Q8HR PO 04/20/17 22:00 (Zoloft) 100 mg DAILY PO 04/21/17 09:00 04/21/17 10:21 (Desyrel) 100 mg HS PO 04/20/17 21:00 04/20/17 19:56 (Ativan Inj) 1 mg Q6H PRN IV PUSH 04/20/17 18:30 04/21/17 07:45 Physical Exam Physical examination was completed by the primary team. On my examination today , patient appears to be in no acute physical distress. No motor abnormalities noted. Labs and vitals reviewed: Vital Signs Vital Signs Date Time Temp Pulse Resp B/P (MAP) Pulse Ox O2 Delivery O2 Flow Rate FiO2 04/21/17 12:00 96.5 65 17 143/65 (91) 92 04/20/17 14:00 Room Air Lab Results Item Value Date Time White Blood Count 11.1 TH/MM3 H 04/20/17 0950 Hemoglobin 13.2 GM/DL 04/20/17 0950 Platelet Count 197 TH/MM3 04/20/17 0950 Sodium Level 133 MEQ/L L 04/20/17 0950 Potassium Level 4.4 MEQ/L 04/20/17 0950 Chloride Level 95 MEQ/L L 04/20/17 0950 Carbon Dioxide Level 32.9 MEQ/L H 04/20/17 0950 Creatinine 0.87 MG/DL 04/20/17 0950 Blood Urea Nitrogen 39 MG/DL H 04/20/17 0950 Estimat Glomerular Filtration Rate 63 ML/MIN L 04/20/17 0950 Aspartate Amino Transf (AST/SGOT) 14 U/L L 04/20/17 0950 Alanine Aminotransferase (ALT/SGPT) 19 U/L 04/20/17 0950 Alkaline Phosphatase 51 U/L 04/20/17 0950 Vitamin B12 Level 650 PG/ML 04/20/171847 Thyroid Stimulating Hormone 3rd Gen 2.180 uIU/ML 04/20/17 184 RPR and hemoglobin A1c are presently pending. Urinalysis results reviewed. Last Impressions Head CT 04/20/17951 Signed Impressions: Service Date/Time: Thursday, April 20, 2017 10:32 - CONCLUSION: 1. No acute findings in the brain. 2. Right maxillary sinus disease. Casper Parkinson MD Chest X-Ray 04/20/17951 Signed Impressions: Service Date/Time: Thursday, April 20, 2017 10:21 - CONCLUSION: The lungs are clear. Casper Parkinson MD Mental Status Examination Appearance: Disheveled (mild) Consciousness: Somnolent Orientation: Person, Place (hospital), Date/Time (March) Motor Activity: Other (motor exam as above) Speech: Other (somewhat slurred) Language: Other (limited sample) Attention and Concentration: Other (limited sample) Mood: Other ("good") Affect: Blunt Thought Process & Associations: Other (limited sample) Thought Content: Other (limited sample) Hallucination Type: Other (no reported AVH) Delusion Type: None Suicidal Ideation: No Homicidal Ideation: No Mental Status Exam Remarks Unable to assess memory as patient is not able to complete mental status testing. Insight and judgment are presently unclear. Assessment & Plan Problem List: (1) Delirium of mixed origin ICD Codes: F05 - Delirium due to known physiological condition (2) History of bipolar disorder ICD Codes: Z86.59 - Personal history of other mental and behavioral disorders Status: Acute Assessment & Plan 77-year-old female with psychiatric history as detailed above presently admitted to the CDU for altered mental status. Psychiatry is consulted to help assess this altered mental status. On my examination today, the patient is fairly sedated, apparently secondary to having received some Ativan earlier this morning. Consequently, my psychiatric evaluation of the patient is presently fairly limited. Collateral from the patient's daughter suggests that there may be some degree of cognitive impairment and possibly some recent mood instability but no recent verbalization of SI/HI. AMS workup has been undertaken by primary team and neurology. --Could consider MRI brain as noted by neurology along with ammonia, CHACHA, ESR as part of AMS workup. --Recommend holding antidepressants since unopposed antidepressant can raise the risk of mixed/manic states in patient's with bipolar disorder. Patient might benefit from initiation of a mood stabilizer or antipsychotic with mood stabilizing properties, but I would like to get a better assessment before recommending initiating one of these agents. --Consider checking EKG and if QTc not prolonged consider utilizing a low dose of IV Haldol, e.g. 0.5-1mg q6h p.r.n. agitation in place of the lorazepam. In general, I would recommend limiting any anticholinergics, antihistamines, benzodiazepines or opiates as all can worsen mental status. --No clear criteria for a Baez act/inpatient psychiatry presently, although this will also need to be reassessed. I will endeavor to return tomorrow, Sunday to reassess the patient. Case discussed with RN. Thank you very much for this consultation. Freddy Lowry MD Apr 21, 2017 12:35
[2017-04-21 14:36] LABS: HEMOGLOBIN A1C 5.4 % (4.3-6.0)
--- NOTE | 2017-04-21 15:32 | HHI.PR ---
Subjective Remarks Follow up altered mental status. Patient was agitated this morning and received Ativan. She is now sedated. Objective Vitals Vital Signs Date Time Temp Pulse Resp B/P (MAP) Pulse Ox O2 Delivery O2 Flow Rate FiO2 04/21/17 12:00 96.5 65 17 143/65 (91) 92 04/21/17 08:00 95.4 73 17 129/60 (83) 91 04/21/17 02:25 97.4 63 18 140/80 (100) 95 04/20/17 20:30 98.4 75 20 139/72 (94) 97 04/20/17 15:56 97.8 62 18 136/62 (86) 94 I/O 04/20/17 04/20/17 04/20/17 04/21/17 04/21/17 04/21/17 07:00 15:00 23:00 07:00 15:00 23:00 Intake Total 240 ml Balance 240 ml Intake Oral 240 ml # Voids 1 4 3 # Bowel Movements 2 Result Diagram: 04/20/17 0950 04/20/17 0950 Imaging Last Impressions Head CT 04/20/1752 Signed Impressions: Service Date/Time: Thursday, April 20, 2017 10:32 - CONCLUSION: 1. No acute findings in the brain. 2. Right maxillary sinus disease. Casper Parkinson MD Chest X-Ray 04/20/1752 Signed Impressions: Service Date/Time: Thursday, April 20, 2017 10:21 - CONCLUSION: The lungs are clear. Casper Parkinson MD Objective Remarks General: Elderly female in no acute distress. Heart: Regular rate and rhythm. No murmur. Lungs: Clear to auscultation bilaterally. No wheezes, rales, or rhonchi. Breathing is nonlabored. Abdomen: Soft, nontender, nondistended. Extremities: No lower extremity edema. Psych: Sedated. Procedures None Urinary Catheter: No Vascular Central Line Catheter: No A/P Problem List: (1) Altered mental status ICD Code: R41.82 - Altered mental status, unspecified Status: Acute Assessment and Plan 1. Encephalopathy, metabolic: Patient presented with altered mental status. CT of the head is negative. Appreciate neurology and psychiatry recommendations. Continue workup with labs, possible MRI if no improvement. 2. Frequent falls, history of spinal stenosis: Fall precautions. Physical therapy. 3. Hypertension: Continue HCTZ, lisinopril, amlodipine. 4. Dyslipidemia: Continue Lipitor. 5. Questionable history of diabetes mellitus: A1c pending. Monitor Accu-Cheks and cover with sliding scale insulin. 6. DVT prophylaxis: SCDs. Problem Qualifiers (1) Altered mental status: Qualified Codes: R41.82 - Altered mental status, unspecified Fran Marx MD Apr 21, 2017 15:32
[2017-04-21 16:00] VITALS: BP 122/75; PULSE 64; RESP 17; TEMP 96; O2SAT 93
--- NOTE | 2017-04-21 17:05 | EKG ---
Date Performed: 04/21/2017 Time Performed: 15:06:01 PTAGE: 77 years EKG: Sinus rhythm ST ABNORMALITY, CONSIDER EARLY REPOLARIZATION PREVIOUS TRACING : 04/10/2017 07.07 No significant change from previous tracing noted. DOCTOR: Westley Gates Interpretating Date/Time 04/21/2017 17:03:54
[2017-04-21 19:48] VITALS: BP 113/51; PULSE 64; RESP 18; TEMP 98.3; O2SAT 90
[2017-04-22] VITALS (7 sets, daily range): BP systolic 114–131; BP diastolic 56–80; PULSE 52–75; RESP 18–20; TEMP 97.3–98.2; O2SAT 92–97
[2017-04-22] MEDS: PHENAZOPYRIDINE HCL 100 MG TAB PO SCH ×4 (00:15→23:04)
[2017-04-22] MEDS: traZODone HCL 100 MG TAB PO SCH (00:15)
[2017-04-22] MEDS: ATORVASTATIN 10 MG TAB PO SCH ×2 (00:16→23:04)
[2017-04-22] MEDS: OXYBUTYNIN CHLORIDE 5 MG TAB PO SCH ×2 (00:16→23:04)
[2017-04-22] MEDS: INSULIN ASPART SUPPLEMENTAL SCALE SQ SCH (08:00)
[2017-04-22] MEDS: GABAPENTIN 300 MG CAP PO SCH ×3 (09:52→19:47)
[2017-04-22] MEDS: ASPIRIN EC 81 MG TABEC PO SCH (09:52)
[2017-04-22] MEDS: HYDROCHLOROTHIAZIDE 25 MG TAB PO SCH (09:52)
[2017-04-22] MEDS: PANTOPRAZOLE SOD 40 MG DELAYED RELEASE TAB PO SCH (09:52)
[2017-04-22] MEDS: amLODIPine BESYLATE 5 MG TAB PO SCH (09:53)
[2017-04-22] MEDS: SERTRALINE HCL 100 MG TAB PO SCH (09:53)
[2017-04-22] MEDS: LISINOPRIL 10 MG TAB PO SCH (09:53)
--- NOTE | 2017-04-22 09:57 | HHI.PR ---
Subjective Remarks Follow up encephalopathy. Patient is more alert today. Daughter is at bedside and states that the patient's mental status is not quite at her baseline, but is better than when she came to the hospital. The patient becomes fixated on words/phrases and repeats them multiple times. She reports "pain in the rectum" . She does have an area of redness over the sacrum, but no skin breakdown. Objective Vitals Vital Signs Date Time Temp Pulse Resp B/P (MAP) Pulse Ox O2 Delivery O2 Flow Rate FiO2 04/22/17 07:09 97.3 69 18 125/80 (95) 95 04/22/17 03:16 97.8 52 18 120/57 (78) 95 04/22/17 00:27 75 20 95 04/22/17 00:27 95 Nasal Cannula 2.00 04/21/17 19:48 98.3 64 18 113/51 (71) 90 04/21/17 16:00 96.0 64 17 122/75 (91) 93 04/21/17 12:00 96.5 65 17 143/65 (91) 92 I/O 04/21/17 04/21/17 04/21/17 04/22/17 04/22/17 04/22/17 07:00 15:00 23:00 07:00 15:00 23:00 # Voids 3 3 # Bowel Movements 3 Result Diagram: 04/20/17 0950 04/20/17 0950 Imaging Last Impressions Head CT 04/20/17951 Signed Impressions: Service Date/Time: Thursday, April 20, 2017 10:32 - CONCLUSION: 1. No acute findings in the brain. 2. Right maxillary sinus disease. Casper Parkinson MD Chest X-Ray 04/20/17951 Signed Impressions: Service Date/Time: Thursday, April 20, 2017 10:21 - CONCLUSION: The lungs are clear. Casper Parkinson MD Objective Remarks General: Obese, elderly female in no acute distress. Heart: Regular rate and rhythm. No murmur. Lungs: Clear to auscultation bilaterally. No wheezes, rales, or rhonchi. Breathing is nonlabored. Abdomen: Soft, nontender, nondistended. Extremities: No lower extremity edema. Psych: Alert. Oriented to year/month. Not oriented to location (states she is in [facility] in [place]). Procedures None Urinary Catheter: No Vascular Central Line Catheter: No A/P Problem List: (1) Altered mental status ICD Code: R41.82 - Altered mental status, unspecified Status: Acute Assessment and Plan 1. Encephalopathy, metabolic: Patient presented with altered mental status. Improved somewhat today. CT of the head is negative. Appreciate neurology and psychiatry recommendations. Sed rate is elevated, but workup is otherwise negative so far. Consider MRI if no improvement. 2. Frequent falls, history of spinal stenosis: Fall precautions. Physical therapy. 3. Hypertension: Continue HCTZ, lisinopril, amlodipine. 4. Dyslipidemia: Continue Lipitor. 5. Questionable history of diabetes mellitus: A1c 5.4. Discontinue Accu-Cheks. 6. DVT prophylaxis: SCDs. Discharge Planning Pending further clinical improvement. Problem Qualifiers (1) Altered mental status: Qualified Codes: R41.82 - Altered mental status, unspecified Fran Marx MD Apr 22, 2017 09:57
--- NOTE | 2017-04-22 17:27 | HHI.PYPN ---
Subjective Remarks Pt seen and examined. Chart reviewed. Daughter at bedside. On my exam today, patient is more alert. She tells me that she has to cast out the forces of Satan; daughter tells me this methodist preoccupation is a common feature of patient's manias. Patient denies SI/HI/AVH. She is hyperverbal. When I speak with daughter outside the room, patient is observed clapping her hands and speaking continuously to no one for several minutes. A&O to person, month/year , hospital. Struggles with attention/concentration testing. No physical complaints. Spoke with patient's daughter. Appropriate to have daughter act as HCS at this point given patient's mental state. She would rather avoid psychiatric hospitalization at this point, if possible, and asks that we try to start a med to stabilize patient's mood in the CDU. She continues to have concerns for ongoing dementia. We discuss the R/B/A of a trial of Zyprexa; side effects discussed including but not limited to sedation, weight gain, blood sugar/ cholestrol increase, EPS, NMS. Daughter agrees to a trial of this agent. Review of Systems ROS Limitations: Poor Historian Except as stated in HPI: all other systems reviewed are Neg Mental Status Examination Appearance: Disheveled (mild) Consciousness: Alert Orientation: Person, Place (hospital), Date/Time (month/year) Motor Activity: Other (no abnormal motor movements noted) Speech: Rapid Language: Perseveration Attention and Concentration: Easily Distracted Memory: Impaired Mood: Anxious Affect: Labile Thought Process & Associations: Circumstantial Thought Content: Preoccupations (methodist) Hallucination Type: None Delusion Type: None, Other Suicidal Ideation: No Homicidal Ideation: No Insight: Poor Judgment: Poor Results Labs Item Value Date Time Ammonia 23 MCMOL/L 04/21/17 1536 Erythrocyte Sedimentation Rate 116 mm/hr H 04/21/17 1536 Labs reviewed. CHACHA, ESR pending. Vitals/IOs Vital Signs Date Time Temp Pulse Resp B/P (MAP) Pulse Ox O2 Delivery O2 Flow Rate FiO2 04/22/17 15:26 97.6 68 18 122/56 (78) 96 04/22/17 00:27 Nasal Cannula 2.00 Assessment & Plan Problem List: (1) Delirium of mixed origin ICD Codes: F05 - Delirium due to known physiological condition (2) Bipolar affective, manic ICD Codes: F31.10 - Bipolar disorder, current episode manic without psychotic features, unspecified Assessment & Plan Discontinue Zoloft and trazodone. Add Zyprexa 2.5mg qHS with plans to titrate to effect. EKG sinus rhythm with QTcH 402ms, not prolonged. I will request neuropsych eval for possible underlying dementia. Inpatient psych remains a possibility, but daughter is not supportive of this presently and patient's symptoms are not so severe that I must insist upon it. Case d/w Dr. Marx. I will sign case out to Dr. García tomorrow. Justification for Cont. Inpt. Per primary team. Freddy Lowry MD Apr 22, 2017 17:27
[2017-04-22] MEDS: OLANZapine 2.5 MG TAB PO SCH (23:04)
[2017-04-22] MEDS: LORazepam 2 MG/ML VIAL IV PUSH PRN (23:50)
[2017-04-23] VITALS (9 sets, daily range): BP systolic 108–145; BP diastolic 51–65; PULSE 61–84; RESP 17–21; TEMP 97.2–98.4; O2SAT 93–96
[2017-04-23 06:10] LABS: AUTOMATED NEUTROPHIL # 7.1 TH/MM3 (1.8-7.7); BASOPHIL % 0.2 % (0.0-2.0); EOSINOPHIL # 0.3 TH/MM3 (0-0.4); EOSINOPHIL % 2.5 % (0.0-4.0); HEMATOCRIT 33.4 % (35.0-46.0); HEMOGLOBIN 11.2 GM/DL (11.6-15.3); LYMPH % 21.6 % (9.0-44.0); LYMPHOCYTE # 2.2 TH/MM3 (1.0-4.8); MEAN CELL VOLUME 87.8 FL (80.0-100.0); MEAN CORPUSCULAR HEMOGLOBIN 29.5 PG (27.0-34.0); MEAN CORPUSCULAR HGB CONC 33.6 % (32.0-36.0); MEAN PLATELET VOLUME 7.2 FL (7.0-11.0); MONO % 5.7 % (0.0-8.0); MONOCYTE # 0.6 TH/MM3 (0-0.9); PLATELET COUNT 164 TH/MM3 (150-450); WHITE BLOOD COUNT 10.2 TH/MM3 (4.0-11.0)
[2017-04-23 06:43] LABS: BICARBONATE 32.1 MEQ/L (21.0-32.0); CALCIUM 8.7 MG/DL (8.5-10.1); CREATININE 1.27 MG/DL (0.50-1.00); MAGNESIUM 1.9 MG/DL (1.5-2.5); PHOSPHORUS 4.3 MG/DL (2.5-4.9)
[2017-04-23] MEDS: PHENAZOPYRIDINE HCL 100 MG TAB PO SCH ×3 (06:45→23:10)
[2017-04-23] MEDS: HYDROCHLOROTHIAZIDE 25 MG TAB PO SCH (11:25)
[2017-04-23] MEDS: ASPIRIN EC 81 MG TABEC PO SCH (11:25)
[2017-04-23] MEDS: PANTOPRAZOLE SOD 40 MG DELAYED RELEASE TAB PO SCH (11:25)
[2017-04-23] MEDS: amLODIPine BESYLATE 5 MG TAB PO SCH (11:25)
[2017-04-23] MEDS: GABAPENTIN 300 MG CAP PO SCH (11:26)
[2017-04-23] MEDS: LISINOPRIL 10 MG TAB PO SCH (11:26)
--- NOTE | 2017-04-23 12:21 | PD.HHIRCNE ---
Disclaimer Patient was given an explanation of the nature and purpose of the evaluation. Patient agreed to proceed with the evaluation and treatment plan. History Reason for Referral The patient is a 77 year old right handed female with a past medical history of bipolar disorder who was brought to the ED on 04/20/2017 with mental statu changes. It is noted that she was recently admitted to another hospital fore pneumonia and UTI, but these issues had cleared. Her daughter reported that the patient has deteriorated cognitively for some time, presently living in an [facility]. The patient has had difficulties with a variety of self-cares, including medication maangement, finanical management and other activities of daily living. Recent head CT was generally unremarkable. It is noted that this patient is originally from [facility], emigrating to the [place] in her twenties. 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 She is , but now , and has one daughter. She is referred for baseline neurobehavioral status examination per trauma protocol to assess cognitive, behavioral and emotional aspects of her condition and to provide treatment recommendations. Additional Psychosocial Hx Smoking Status: Never Smoker Hx Caffeine Use: Yes (1 cup/ day coffee ) Hx Substance Use: No Level of Education: College Employment Status: Retired Prior Living Setting: Assisted Living Residence Dominant Hand: Right Past Surgical/Medical History Past Surgery: Yes (LAMINECTOMY, APPY, HYSTERECTOMY) Major surgery in last 100 days: Unknown Hx Anesthesia Reactions: No Hx Orthopedic Surgery: Yes (BACK SURG) Hx Cardiac Surgery: No Hx Chest Surgery: No Hx Abdominal Surgery: No Hx Genitourinary Surgery: Yes (MESH FOR THE URINARY INCONTINENCE ) Hx Gynecologic Surgery: Yes (HYSTERECTOMY ) Hx Endocrine Surgery: No Hx Eye Surgery: No Hx Ear Surgery: No Hx Oral Surgery: No Hx of Neuro Prob: Yes (peripheral neuropathy) Hx Seizures: No Cephalgia (Headaches): No Hx Head Injury: No Hx Falls: No Hx Cerebrovascular Accident: No Hx Dizziness: No Hx Numbness: No Hx of Musculoskeletal Pro: Yes (lumbar radiculopathy) Hx Arthritis: Yes (OSTEOARTHRITIS ) Hx Neck Problems: No Hx Back Problem: Yes Hx of Cardiovascular Prob: Yes Hypertension (High Blood Press: Yes Hx Clotting Problems: No Hx Chest Pain: No Hx Lightheadedness: Yes Hx Congestive Heart Failure: No Syncope (Fainting): No Hx of Respiratory Problem: No Hx Asthma: No Hx Wheezing: No Hx Chronic Obstructive Pulmona: No Hx Dyspnea: No Hx Snoring: No Hx Emphysema: No Hx Sleep Apnea: No Hx of GI Problems: Yes (CONSTIPATION , COLITIS, HEMORROIDS ) Hx Heartburn: No Hx Gastroesophageal Reflux: Yes Hx Hiatal Hernia: No Hx Ulcer: No Hx Liver Disease: No Hx of Problems: Yes (overactive bladder, URINARY INCONTINENCE ) Hx Renal Failure: Yes (stage III chronic kidney disease) Hx Kidney Stones: No Hx Infection: No Hx Pelvic Problems: No Hx Genital Problems: No ?: Not Hx of Immuno Disor: No Hx Autoimmune Disease: No Hx of Endocrine Problems: No Hx Thyroid Disease: No Hx Diabetes: Yes (BORDERLINE PER DAUGHTER) Does Patient Currently Take Gl: No Hx of Eye Probl: Yes (glasses with the pt) Hx of Hearing or Ear Problems: No Hx Dental Problems: No Hx Psychiatric Problems: No Hx Anxiety: No Hx Depression: Yes Hx Sickle Cell Disease: No Hx Thrombocytopenia: No Hx of MDRO: No Hx of MRSA: No Hx of VRE: No Hx of CDIFF: No Hx of Tuberculosis: No Hx Chicken Pox: Yes Hx Measles: No Hx of Body/Medical Devices: No Hx Pacemaker: No Hx Internal Defibrillator: No Hx Dental Implants: No Hx Eye Prosthesis: No Genitourinary Device: No Genitourinary Ostomy: No Gastrointestinal Ostomy: No Blood Transfusion History Will receive Blood /Blood prod: Yes Hx Blood Transfusions: Yes Hx Blood Transfusion Reaction: No Medication Active Medications Olanzapine (ZyPREXA) 2.5 mg HS PO Last administered on 04/22/17at 23:04; Admin Dose 2.5 MG; Start 04/22/17 at 21:00 Witch Mallika/ Glycerin (Tucks Pads) 1 applic UNSCH PRN TOPICAL; Start 04/23/17 at 00:15 Mental Status Assessment Orientation: oriented to Self, oriented to Time, disoriented to Place, disoriented to Situation Mental Status: WFL: Language/Interactions, Impaired: Thought processing, Attention, Learning/Memory, Problem-Solving Adjustment/Coping Assessment Adjustment/Coping: None: Depression, Anxiety, Pain, Severe: Awareness, Insight Observation In terms of emotional functioning, the patient demonstrated normal emotional adjustment although her insight, awareness and judgment were impaired. This patient demonstrated no signs of agitation, impulsivity or disinhibition, nor was there remarkable evidence of a formal thought disorder or psychosis. There was no evidence of depression or anxiety. The Geriatric Depression Scale-Short Form was administered given the ease to which it is administered to persons with known neurological pathology, and the patient endorsed 1 of 15 symptoms, which falls within the non depressed range. Thought content was free from suicidal, homicidal or paranoid ideation, and thought processes were perseverative and concrete. The patients mood was euthymic, and her affect was stable and appropriate. The patient appears to possess no insight and awareness into their situation and within the limits of this brief evaluation, poor judgment. LTG Status: Deferred STG Status: Deferred Team Members: Neuropsychologist Effort Assessment Effort: Average Cognition Assessment Rating: WFL: Language, Impaired: Attention/Processing, Immediate & Delayed Memor, Visual Perception, Spatial Judgement, Executive Observation The patient was alert and oriented to person and in a general sense time, but not the place or the circumstances surrounding the recent hospitalization. The Mini-Mental State Exam was administered, and the patient obtained a score of 21 out of 30 points, which falls in the impaired range. However, on further evaluation, specific deficits were identified. In terms of attention skills, the patient exhibited challenges. The patient was able to remain on task and remember basic but not complex verbal instructions. She was unable to spell simple words backwards. In terms of memory functioning, the patient exhibited challenges. The patients initial registration of verbal information was normal , but the patient was unable to improve their memory with repetition. After a period of delay, the patient was unable to recall this information from memory. More specifically, on the Luria Memory Words Test-Short Form, the patients trial one performance was 4 of 7 words, trial five performance was 3 of 7words, the patients Total Learning score was 18 (below cut-off), and the patients Delayed recall score was 0 of 7 words (well below cut-off). In terms of speech and language skills, the patient demonstrated normal abilities except for deficient comprehension. The patients initiated spontaneous conversation throughout the assessment. Speech was characterized by adequate prosody, grammar, articulation, volume and rate. No remarkable dysnomic or paraphasic errors were noted either during conversational speech or on confrontation naming tasks. Reading recognition skills were adequate, as were writing skills. Her reading recognition skills fell within the high average range, with a percentile rank of 79. The patients comprehension for basic one- and two-stage commands was poor however, owing to her impaired memory and complex reasoning skills. In terms of problem-solving skills, the patient exhibited challenges. The patients ability to understand abstraction reasoning was abnormal, as demonstrated by her inability to abstract essential shared characteristics of objects and concepts. Mathematical reasoning skills were also abnormal. Speed of information processing, as evaluated by both the Letter and Category Fluency Tests demonstrated a pattern of dissociated performance typically observed in persons with dementing illnesses. In terms of visuospatial/constructional abilities, the patient demonstrated impairment of functioning, and she was unable to understand instructions provided to her concerning demonstrations of praxis. Summary/Diagnosis Summary This 77 year old woman has demonstrated a progressive pattern of neurocognitive decline over the past several months, characterized by increasing problems with managing her activities of daily living. Neuropsychological evaluation results are most certainly inconsistent with the normal aging process or the singular effects of emotional distress on cognition. Ms. Blackmon demonstrated impairments of memory and learning, complex reasoning, processing speed and calculation in the presence of relatively normal attention and focus. Historically, she has demonstrated a slow deterioration of her ability to care for herself. The overall constellation of neuropsychological findings in combination with her clinical history is consistent with a Major Neurocognitive Disorder (formally referred to as a dementia). In the absence of biomedical causes for her neurocognitive decline, the most parsimonious diagnosis is Major Neurocognitive Disorder due to Alzheimer's disease. Impressions Major Neurocognitive Disorder due to Alzheimer's disease. Diagnosis: (1) Major neurocognitive disorder due to Alzheimer's disease, probable, with behavioral disturbance Recommendations Recommendations Recommendations 1. This patient is NOT considered to be cognitively capable of making decisions of a legal, financial and medical nature at this point in time. She demonstrates the impaired ability to appreciate a situation and its likely consequences and she demonstrates the impaired ability to manipulate information rationally. In other words, she lacks decision making capacity. She does not appear capable of managing her own funds. 2. Continued medical evaluation to rule out reversible causes for her dementia is recommended. Such evaluation could include neuroimaging procedures to assist in diagnosis. Such evaluation could include MRI or PET technologies in order to look for clinical correlations with these neuropsychological evaluation results. Pharmacological interventions designed to reduce the progression of her memory impairment is also recommended, unless medically contraindicated. . 3. The patient and her family requires outside assistance for his care. Presently, the patient is functioning at a Global Deterioration Scale level of 5 , which functionally means for her that she can no longer survive at home without significant assistance with medication management, eating, drinking, bill paying, etc. During interview, she was unable to recall relevant aspects of her life; she was at times disoriented, in addition to the cognitive impairments described in this report. Given these neuropsychological evaluation results, she essentially should not be living at an [facility] level of care , and requires a higher level of care. Session Attendance Variance 60 minutes. Dionicio Cleary PhD Apr 23, 2017 12:21 pm
[2017-04-23] MEDS: WITCH HAZEL 50%/GLYCERIN 12.5% 40 PAD JAR TOPICAL PRN ×2 (13:16→14:56)
[2017-04-23] MEDS: SODIUM CHLOR 0.9% 1000 ML INJ 1,000 ML IV SCH (14:53)
--- NOTE | 2017-04-23 16:12 | HHI.PR ---
Subjective Remarks Follow up encephalopathy. Patient is still somewhat confused. Still complaining of "pain in the rectum". No other complaints at this time. States that she is not crazy. Objective Vitals Vital Signs Date Time Temp Pulse Resp B/P (MAP) Pulse Ox O2 Delivery O2 Flow Rate FiO2 04/23/17 15:51 98.0 74 20 145/65 (91) 96 04/23/17 11:32 98.0 65 17 130/58 (82) 94 04/23/17 09:58 94 Nasal Cannula 3.00 93 04/23/17 07:30 97.7 66 21 108/51 (70) 93 04/23/17 03:49 97.2 61 18 110/52 (71) 94 04/23/17 00:16 94 Nasal Cannula 3.00 04/23/17 00:06 18 94 04/23/17 00:00 94 Nasal Cannula 3.00 04/22/17 23:34 98.2 71 18 114/64 (81) 92 04/22/17 19:53 97.9 72 18 131/61 (84) 97 I/O 04/22/17 04/22/17 04/22/17 04/23/17 04/23/17 04/23/17 07:00 15:00 23:00 07:00 15:00 23:00 # Voids 3 1 # Bowel Movements 3 1 Result Diagram: 04/23/17 0517 04/23/17516 Imaging Last Impressions Head CT 04/20/17951 Signed Impressions: Service Date/Time: Thursday, April 20, 2017 10:32 - CONCLUSION: 1. No acute findings in the brain. 2. Right maxillary sinus disease. Casper Parkinson MD Chest X-Ray 04/20/17951 Signed Impressions: Service Date/Time: Thursday, April 20, 2017 10:21 - CONCLUSION: The lungs are clear. Casper Parkinson MD Objective Remarks General: Obese, elderly female in no acute distress. Heart: Regular rate and rhythm. No murmur. Lungs: Clear to auscultation bilaterally. No wheezes, rales, or rhonchi. Breathing is nonlabored. Abdomen: Soft, nontender, nondistended. Extremities: No lower extremity edema. Psych: Alert. Somewhat confused. Procedures None Urinary Catheter: No Vascular Central Line Catheter: No A/P Problem List: (1) Altered mental status ICD Code: R41.82 - Altered mental status, unspecified Status: Acute Assessment and Plan 1. Encephalopathy, metabolic: Patient presented with altered mental status. Still somewhat confused. CT of the head is negative. Appreciate neurology and psychiatry recommendations. Check MRI brain. 2. Frequent falls, history of spinal stenosis: Fall precautions. Physical therapy. 3. Hypertension: Continue HCTZ, lisinopril, amlodipine. 4. Dyslipidemia: Continue Lipitor. 5. Questionable history of diabetes mellitus: A1c 5.4. Discontinue Accu-Cheks. 6. Rectal pain: Consider GI consult. Continue Tucks pads. 7. DVT prophylaxis: SCDs. Discharge Planning Pending further clinical improvement. Problem Qualifiers (1) Altered mental status: Qualified Codes: R41.82 - Altered mental status, unspecified Fran Marx MD Apr 23, 2017 16:12
--- NOTE | 2017-04-23 18:25 | HHI.PR ---
Review/Management Daily Summary 04/23 awake and psychotic at times "nobody believes me" i am sick etc dementia with psychosis and encephalopathy need full nursing care facility now, antipsychotics Subjective Subjective Comments No acute events reported No headache Active Medications Current Medications Medications (Trade) Dose Ordered Sig/Sanaz Route Start Time Stop Time Status Last Admin (Norvasc) 5 mg DAILY PO 04/21/17 09:00 04/23/17 11:25 (Ecotrin Ec) 81 mg DAILY PO 04/21/17 09:00 04/23/17 11:25 (Lipitor) 10 mg HS PO 04/20/17 21:00 04/22/17 23:04 (Hydrodiuril) 25 mg DAILY PO 04/21/17 09:00 04/23/17 11:25 (Prinivil) 10 mg DAILY PO 04/21/17 09:00 04/23/17 11:26 (Ditropan) 5 mg HS PO 04/20/17 21:00 04/22/17 23:04 (Protonix) 40 mg DAILY PO 04/21/17 09:00 04/23/17 11:25 (Pyridium) 100 mg Q8HR PO 04/20/17 22:00 04/23/17 14:53 (Ativan Inj) 1 mg Q6H PRN IV PUSH 04/20/17 18:30 04/22/17 23:50 (ZyPREXA) 2.5 mg HS PO 04/22/17 21:00 04/22/17 23:04 (Tucks Pads) 1 applic UNSCH PRN TOPICAL 04/23/17 00:15 04/23/17 14:56 Sodium Chloride 1,000 ml @ 42 mls/hr [id number] IV 04/23/17 13:30 04/23/17 14:53 (Neurontin) 300 mg BID PO 04/24/17 09:00 (Neurontin) 400 mg BID PO 04/24/17 09:00 Allergies Allergies Coded Allergies amitriptyline (Unverified Allergy, Severe, 10/11/16) gabapentin (Unverified Allergy, Severe, 10/11/16) penicillin G (Unverified Allergy, Severe, 10/11/16) prochlorperazine (Unverified Allergy, Severe, 10/11/16) Exam I&O / VS Vital Signs Date Time Temp Pulse Resp B/P (MAP) Pulse Ox O2 Delivery O2 Flow Rate FiO2 04/23/17 15:51 98.0 74 20 145/65 (91) 96 04/23/17 11:32 98.0 65 17 130/58 (82) 94 04/23/17 09:58 94 Nasal Cannula 3.00 93 04/23/17 07:30 97.7 66 21 108/51 (70) 93 04/23/17 03:49 97.2 61 18 110/52 (71) 94 04/23/17 00:16 94 Nasal Cannula 3.00 04/23/17 00:06 18 94 04/23/17 00:00 94 Nasal Cannula 3.00 04/22/17 23:34 98.2 71 18 114/64 (81) 92 04/22/17 19:53 97.9 72 18 131/61 (84) 97 Objective Micro and Labs Laboratory Tests Test 04/23/17 05:17 White Blood Count 10.2 Red Blood Count 3.80 Hemoglobin 11.2 Hematocrit 33.4 Mean Corpuscular Volume 87.8 Mean Corpuscular Hemoglobin 29.5 Mean Corpuscular Hemoglobin Concent 33.6 Red Cell Distribution Width 14.0 Platelet Count 164 Mean Platelet Volume 7.2 Neutrophils (%) (Auto) 70.0 Lymphocytes (%) (Auto) 21.6 Monocytes (%) (Auto) 5.7 Eosinophils (%) (Auto) 2.5 Basophils (%) (Auto) 0.2 Neutrophils # (Auto) 7.1 Lymphocytes # (Auto) 2.2 Monocytes # (Auto) 0.6 Eosinophils # (Auto) 0.3 Basophils # (Auto) 0.0 CBC Comment DIFF FINAL Differential Comment Erythrocyte Sedimentation Rate 15 Blood Urea Nitrogen 33 Creatinine 1.27 Random Glucose 117 Calcium Level 8.7 Phosphorus Level 4.3 Magnesium Level 1.9 Sodium Level 130 Potassium Level 4.2 Chloride Level 92 Carbon Dioxide Level 32.1 Anion Gap 6 Estimat Glomerular Filtration Rate 41 Jessenia Jean MD Apr 23, 2017 18:25
[2017-04-23] MEDS: LORazepam 2 MG/ML VIAL IV PUSH PRN (18:39)
--- NOTE | 2017-04-23 20:14 | RADRPT ---
EXAM DATE/TIME: 04/23/2017 18:53 [facility] COMPARISON: No previous studies available for comparison. INDICATIONS : Altered mental status. Encephalopathy. CONTRAST: 18 cc Omniscan (gadodiamide) IV MEDICAL HISTORY : Arthritis. Neuropathy. CKD. SURGICAL HISTORY : Hysterectomy. Bladder sling. Lumbar laminectomy. Bi-lateral knees. ENCOUNTER: Subsequent ACUITY: 1 day PAIN SCORE: 0/10 LOCATION: cranial TECHNIQUE: Multiplanar, multisequence MRI of the brain was performed both prior to and following the administrat ion of paramagnetic contrast. FINDINGS: CEREBRUM: The ventricles are normal for age. No evidence of midline shift, mass lesion, hemorrhage or acute in farction. No extraaxial fluid collections are seen. The pituitary gland and suprasellar cistern are normal in configuration. WHITE MATTER: Mild signal abnormalities are seen in the white matter. POSTERIOR FOSSA: The cerebellum and brainstem are intact. The 4th ventricle is midline. The cerebellopontine angle is unremarkable. The cerebellar tonsils are normal in position. DIFFUSION IMAGING: No focal areas of restricted diffusion are seen. No evidence of acute infarction. EXTRACRANIAL: The visualized portions of the orbits and paranasal sinuses are unremarkable. POST-CONTRAST: No abnormal areas of parenchymal or dural enhancement. No evidence of blood-brain barrier breakdown. CONCLUSION: 1. No acute findings. Minimal white matter ischemic change. Remote lacunar infarct left basal ganglia . Alonso Alvarez MD on April 23, 2017 at 20:11 Board Certified Radiologist. This report was verified electronically.
[2017-04-23] MEDS: OXYBUTYNIN CHLORIDE 5 MG TAB PO SCH (20:43)
[2017-04-23] MEDS: ATORVASTATIN 10 MG TAB PO SCH (20:44)
[2017-04-23] MEDS: OLANZapine 2.5 MG TAB PO SCH (20:44)
[2017-04-24] VITALS (9 sets, daily range): BP systolic 126–147; BP diastolic 58–67; PULSE 72–84; RESP 16–20; TEMP 97.3–97.8; O2SAT 91–97
[2017-04-24] MEDS ORDERED: HYDROCORTISONE ACETATE 25 MG SUPP RECTAL ONE (00:30)
[2017-04-24] MEDS ORDERED: ACETAMINOPHEN/HYDROcodone 325 MG/5 MG TAB PO ONE (00:30)
[2017-04-24] MEDS: LORazepam 2 MG/ML VIAL IV PUSH PRN ×2 (00:38→21:04)
[2017-04-24] MEDS: DOCUSATE SODIUM 100 MG/10 ML UDC PO SCH ×3 (00:42→21:02)
[2017-04-24] MEDS: PHENAZOPYRIDINE HCL 100 MG TAB PO SCH ×3 (06:22→21:03)
[2017-04-24 07:25] LABS: BICARBONATE 31.4 MEQ/L (21.0-32.0); CALCIUM 8.6 MG/DL (8.5-10.1); CREATININE 1.04 MG/DL (0.50-1.00)
[2017-04-24] MEDS: amLODIPine BESYLATE 5 MG TAB PO SCH (10:06)
[2017-04-24] MEDS: LISINOPRIL 10 MG TAB PO SCH (10:07)
[2017-04-24] MEDS: GABAPENTIN 400 MG CAP PO SCH ×2 (10:07→21:03)
[2017-04-24] MEDS: GABAPENTIN 300 MG CAP PO SCH ×2 (10:07→21:02)
[2017-04-24] MEDS: HYDROCHLOROTHIAZIDE 25 MG TAB PO SCH (10:08)
[2017-04-24] MEDS: ASPIRIN EC 81 MG TABEC PO SCH (10:08)
[2017-04-24] MEDS: PANTOPRAZOLE SOD 40 MG DELAYED RELEASE TAB PO SCH (10:08)
--- NOTE | 2017-04-24 12:17 | HHI.PYPN ---
Subjective Remarks The patient was seen today for psychiatric reevaluation. Case was discussed with primary attending and nurse in charge. Her daughter Gretchen was at bedside. On psychiatric evaluation the patient is calm, cooperative and pleasant. The patient reports that she feels much better, she is fully oriented 3, reports good mood, denies depression, denies anxiety, denies suicidal and homicidal ideation, she denies visual and auditory hallucinations. The patient is future oriented, no attention deficit, no fluctuation of consciousness present at this moment. To continue her psychiatric/medical in outpatient basis. Her daughter also agree with this plan. Review of Systems Except as stated in HPI: all other systems reviewed are Neg Mental Status Examination Appearance: Appropriate, Disheveled (mild) Consciousness: Alert Orientation: Person, Place (hospital), Date/Time (month/year) Motor Activity: Other (no abnormal motor movements noted) Speech: Rapid Language: Adequate Fund of Knowledge: Adequate Attention and Concentration: Easily Distracted Memory: Impaired Mood: Anxious Affect: Appropriate Thought Process & Associations: Intact Thought Content: Appropriate, Preoccupations (spiritism) Hallucination Type: None Delusion Type: None, Other Suicidal Ideation: No Suicidal Plan: No Suicidal Intention: No Homicidal Ideation: No Homicidal Plan: No Homicidal Intention: No Insight: Fair Judgment: Impulsive Results Labs Test 04/24/17 06:05 Blood Urea Nitrogen 33 MG/DL Creatinine 1.04 MG/DL Random Glucose 119 MG/DL Calcium Level 8.6 MG/DL Sodium Level 132 MEQ/L Potassium Level 4.2 MEQ/L Chloride Level 94 MEQ/L Carbon Dioxide Level 31.4 MEQ/L Anion Gap 7 MEQ/L Estimat Glomerular Filtration Rate 51 ML/MIN Vitals/IOs Vital Signs Date Time Temp Pulse Resp B/P (MAP) Pulse Ox O2 Delivery O2 Flow Rate FiO2 04/24/17 12:07 97.6 79 19 147/67 (93) 95 04/24/17 10:15 Nasal Cannula 3.00 04/23/17 09:58 93 Assessment & Plan Problem List: (1) Delirium of mixed origin ICD Codes: F05 - Delirium due to known physiological condition Assessment & Plan: On psychiatric evaluation today patient is oriented 3, denies depression, denies anxiety, denies lupe and psychosis. She denies suicidal and homicidal ideation. She does not meet criteria for involuntary psychiatric admission at this moment. Continue olanzapine 2.5 mg twice a day to help with neuropsychiatric symptoms as presentation. (2) Bipolar affective, manic ICD Codes: F31.10 - Bipolar disorder, current episode manic without psychotic features, unspecified Assessment & Plan Estimated LOS: days Justification for Cont. Inpt. She does not meet criteria for involuntary psychiatric admission Robb García MD Apr 24, 2017 12:17
--- NOTE | 2017-04-24 13:44 | HHI.PR ---
Subjective Remarks Follow-up visit encephalopathy, psychosis, HTN. Patient seen and examined today sitting in bed. Reports he is doing well. States that she wanted to get out of bed and walk around but she would need help. O2 nasal cannula. States that she's not on O2 at home and she does not know why she is on oxygen. Denies any chest pain, palpitations, headaches, dizziness. Denies any shortness of breath or dyspnea. Denies any fevers, chills, nausea, vomiting. Denies dysuria. Objective Vitals Vital Signs Date Time Temp Pulse Resp B/P (MAP) Pulse Ox O2 Delivery O2 Flow Rate FiO2 04/24/17 12:07 97.6 79 19 147/67 (93) 95 04/24/17 10:15 Nasal Cannula 3.00 04/24/17 08:04 97.8 76 19 128/59 (82) 93 04/24/17 07:50 94 Nasal Cannula 3.00 04/24/17 04:30 97.6 77 16 133/63 (86) 95 04/24/17 00:07 97.8 72 20 126/58 (80) 95 04/23/17 21:23 94 Nasal Cannula 3.00 04/23/17 20:32 Nasal Cannula 3.00 04/23/17 20:13 98.4 84 20 125/61 (82) 96 04/23/17 15:51 98.0 74 20 145/65 (91) 96 I/O 04/23/17 04/23/17 04/23/17 04/24/17 04/24/17 04/24/17 07:00 15:00 23:00 07:00 15:00 23:00 # Voids 1 5 2 # Bowel Movements 1 2 1 Result Diagram: 04/23/17 0517 04/24/17 0605 Imaging Last Impressions Brain MRI 04/23/17 0000 Signed Impressions: Service Date/Time: Sunday, April 23, 2017 18:53 - CONCLUSION: 1. No acute findings. Minimal white matter ischemic change. Remote lacunar infarct left basal ganglia. Alonso Alvarez MD Head CT 04/20/17 0952 Signed Impressions: Service Date/Time: Thursday, April 20, 2017 10:32 - CONCLUSION: 1. No acute findings in the brain. 2. Right maxillary sinus disease. Casper Parkinson MD Chest X-Ray 04/20/17 0952 Signed Impressions: Service Date/Time: Thursday, April 20, 2017 10:21 - CONCLUSION: The lungs are clear. Casper Parkinson MD Objective Remarks GENERAL: This is an obese, well-developed patient, in no apparent distress. SKIN: Warm and dry. HEENT: Normocephalic. Pupils equal round and reactive. Nose without bleeding. Airway patent. NECK: Trachea midline. No JVD. Supple. CARDIOVASCULAR: Regular rate and rhythm without murmurs, gallops, or rubs. RESPIRATORY: Diminished bases. No wheezes, rales, or rhonchi. GASTROINTESTINAL: Abdomen soft, non-tender, nondistended. Bowel Sounds normoactive x4. MUSCULOSKELETAL: Extremities without clubbing, cyanosis, or edema. NEUROLOGICAL: Awake and alert. Moves all extremities. Normal speech. Procedures None A/P Problem List: (1) Altered mental status ICD Code: R41.82 - Altered mental status, unspecified Status: Acute Assessment and Plan Patient is a 77-year-old female with history of bipolar disorder, spinal stenosis, HTN, HLD who came into the hospital with altered mental status. Encephalopathy, metabolic: Dementia, psychosis - Patient presented with altered mental status. Still somewhat confused. CT of the head is negative. - Appreciate neurology and psychiatry recommendations. Recommends nursing care facility and antipsychotics to manage patient's dementia with psychosis - MRI brain showed 1. No acute findings. Minimal white matter ischemic change. Remote lacunar infarct left basal ganglia. - Patient was seen by psychiatry and on evaluation states this does not meet involuntary psychiatric admission at this moment. They will continue Cipro fraction 2.5 mg twice a day to help with neuropsychiatric symptom as presented. - Neuropsychiatry evaluate the patient deemed patient to be not cognitively capable of making decisions of a legal, financial and medical nature at this point in time. She demonstrates the impaired ability to appreciate a situation and its likely consequences and she demonstrates the impaired ability to manipulate information rationally. In other words, she lacks decision making capacity. She does not appear capable of managing her own funds. Frequent falls, history of spinal stenosis: - Fall precautions. Physical therapy. Hypertension: - Continue HCTZ, lisinopril, amlodipine. Dyslipidemia: - Continue Lipitor. Questionable history of diabetes mellitus: - HgA1c 5.4. Discontinue Accu-Cheks. Rectal pain: - Consider GI consult. Continue Tucks pads. DVT prophylaxis: SCDs. Discharge Planning Plan to DC to [facility]. Previously on [facility] for SNF, but [facility] is [facility] Problem Qualifiers (1) Altered mental status: Qualified Codes: R41.82 - Altered mental status, unspecified Kelly Fontaine Apr 24, 2017 13:44
--- NOTE | 2017-04-24 13:50 | HHI.DS ---
Discharge Summary Admission Date Apr 20, 2017 at 14:25 Admitting Diagnosis altered sensorium, dehydration, bipolar disorder by hx. (1) Altered mental status ICD Code: R41.82 - Altered mental status, unspecified Diagnosis: Principal Status: Acute Procedures None Brief History - From Admission patient is a 77 y/o female with history of bipolar disorder,spinal stenosis, hypertension,dyslipidemia and questionable diabetes, who was brought to ER with altered mental status. the daughter who provided most of the information said that she had flu-like symptoms for a few weeks. she was just treated with steroids and antibiotics. she was recently admitted to [facility] and was treated for possible pneumonia and UTI. the daughter says that she hasn't been feeling well since then. she says that she noticed that she's been forgetful since summer and it seems that its' been getting worse recently.she fell a couple of times last night. there's no history of fever or chills. although she has occasional cough. she denies any chest pain or abdominal pain. the daughter says that she had anemia some blood in the stool last week when she was in the hospital for which she was started on ferrous sulfate. CBC/BMP: 04/23/17 0517 04/24/17 0605 Significant Findings Laboratory Tests Test 04/21/17 15:36 04/23/17 05:17 04/24/17 06:05 Erythrocyte Sedimentation Rate 116 mm/hr (0-30) Red Blood Count 3.80 MIL/MM3 (4.00-5.30) Hemoglobin 11.2 GM/DL (11.6-15.3) Hematocrit 33.4 % (35.0-46.0) Blood Urea Nitrogen 33 MG/DL (7-18) 33 MG/DL (7-18) Creatinine 1.27 MG/DL (0.50-1.00) 1.04 MG/DL (0.50-1.00) Random Glucose 117 MG/DL (74-106) 119 MG/DL (74-106) Sodium Level 130 MEQ/L (136-145) 132 MEQ/L (136-145) Chloride Level 92 MEQ/L (98-107) 94 MEQ/L (98-107) Carbon Dioxide Level 32.1 MEQ/L (21.0-32.0) Estimat Glomerular Filtration Rate 41 ML/MIN (>89) 51 ML/MIN (>89) PE at Discharge General: Obese, elderly female in no acute distress. Heart: Regular rate and rhythm. No murmur. Lungs: Clear to auscultation bilaterally. No wheezes, rales, or rhonchi. Breathing is nonlabored. Abdomen: Soft, nontender, nondistended. Extremities: No lower extremity edema. Psych: Alert. Somewhat confused. Kelly Fontaine Apr 24, 2017 13:50
--- NOTE | 2017-04-24 13:51 | HHI.DCPOC ---
Discharge Care Plan Diagnosis: (1) Major neurocognitive disorder due to Alzheimer's disease, probable, with behavioral disturbance (2) Bipolar affective, manic (3) History of bipolar disorder (4) Delirium of mixed origin (5) Frequent falls (6) Gait instability Your Health Problems Are: Difficulty with ADL Goals to Promote Your Health * To prevent worsening of your condition and complications * To maintain your health at the optimal level Directions to Meet Your Goals Take your medications as prescribed Follow your dietary instruction Follow activity as directed Keep your appointments as scheduled Take your immunizations and boosters as scheduled If your symptoms worsen call your PCP, if no PCP go to Urgent Care Center or Emergency Room Smoking is Dangerous to Your Health. Avoid second hand smoke Call the 24-hour hour crisis hotline for domestic abuse at Kelly Fontaine Apr 24, 2017 13:51
[2017-04-24] MEDS: SODIUM CHLOR 0.9% 1000 ML INJ 1,000 ML IV SCH (15:12)
--- NOTE | 2017-04-24 16:19 | HHI.FF ---
Face to Face Verification Diagnosis: (1) Frequent falls (2) Gait instability (3) Major neurocognitive disorder due to Alzheimer's disease, probable, with behavioral disturbance (4) Bipolar affective, manic (5) Delirium of mixed origin Physical Therapy Order: Evaluate and Treat, Strength and gait training Occupational Therapy Order: Evaluate and Treat, Improve ADL Speech Therapy Order: To Improve: Cognitive skills Home Health Nursing Order: Nursing assessment with vital signs Home Health Aide Order: To Assist In: Bathing and personal care I have seen patient Kusum Blackmon on 04/24/17. My clinical findings support the need for the requested home health care services because: Ltd mobility - disease progression Deconditioned w/ increased weakness Need for psychosocial assistance Impaired cognition/judgement High risk of falls I certify that my clinical findings support that this patient is homebound because: Impaired cognitive ability/safety Unsteady gait/balance Unsafe to leave home unassisted Unable to use public transportation Kelly Fontaine Apr 24, 2017 16:19
[2017-04-24] MEDS: ATORVASTATIN 10 MG TAB PO SCH (21:03)
[2017-04-24] MEDS: OXYBUTYNIN CHLORIDE 5 MG TAB PO SCH (21:03)
[2017-04-24] MEDS: OLANZapine 2.5 MG TAB PO SCH (21:03)
[2017-04-25 04:13] VITALS: BP 128/58; PULSE 84; RESP 16; TEMP 98.7; O2SAT 90
[2017-04-25] MEDS: LORazepam 2 MG/ML VIAL IV PUSH PRN (06:02)
[2017-04-25] MEDS: PHENAZOPYRIDINE HCL 100 MG TAB PO SCH (06:02)
[2017-04-25] MEDS: PANTOPRAZOLE SOD 40 MG DELAYED RELEASE TAB PO SCH (08:27)
[2017-04-25] MEDS: DOCUSATE SODIUM 100 MG/10 ML UDC PO SCH (08:27)
[2017-04-25] MEDS: HYDROCHLOROTHIAZIDE 25 MG TAB PO SCH (08:27)
[2017-04-25] MEDS: GABAPENTIN 300 MG CAP PO SCH (08:28)
[2017-04-25] MEDS: ASPIRIN EC 81 MG TABEC PO SCH (08:28)
[2017-04-25] MEDS: amLODIPine BESYLATE 5 MG TAB PO SCH (08:28)
[2017-04-25] MEDS: LISINOPRIL 10 MG TAB PO SCH (08:28)
[2017-04-25] MEDS: GABAPENTIN 400 MG CAP PO SCH (08:28)
[2017-04-25 08:37] VITALS: BP 149/67; PULSE 87; RESP 18; TEMP 97.3; O2SAT 92
--- NOTE | 2017-04-25 09:02 | HHI.DS ---
Discharge Summary Admission Date Apr 20, 2017 at 14:25 Discharge Date: Apr 25, 2017 Admitting Diagnosis altered sensorium, dehydration, bipolar disorder by hx. (1) Altered mental status ICD Code: R41.82 - Altered mental status, unspecified Diagnosis: Principal Status: Acute Procedures None Brief History - From Admission patient is a 77 y/o female with history of bipolar disorder,spinal stenosis, hypertension,dyslipidemia and questionable diabetes, who was brought to ER with altered mental status. the daughter who provided most of the information said that she had flu-like symptoms for a few weeks. she was just treated with steroids and antibiotics. she was recently admitted to [facility] and was treated for possible pneumonia and UTI. the daughter says that she hasn't been feeling well since then. she says that she noticed that she's been forgetful since summer and it seems that its' been getting worse recently.she fell a couple of times last night. there's no history of fever or chills. although she has occasional cough. she denies any chest pain or abdominal pain. the daughter says that she had anemia some blood in the stool last week when she was in the hospital for which she was started on ferrous sulfate. CBC/BMP: 04/23/17 0517 04/24/17 0605 Significant Findings Laboratory Tests Test 04/23/17 05:17 04/24/17 06:05 Red Blood Count 3.80 MIL/MM3 (4.00-5.30) Hemoglobin 11.2 GM/DL (11.6-15.3) Hematocrit 33.4 % (35.0-46.0) Blood Urea Nitrogen 33 MG/DL (7-18) 33 MG/DL (7-18) Creatinine 1.27 MG/DL (0.50-1.00) 1.04 MG/DL (0.50-1.00) Random Glucose 117 MG/DL (74-106) 119 MG/DL (74-106) Sodium Level 130 MEQ/L (136-145) 132 MEQ/L (136-145) Chloride Level 92 MEQ/L (98-107) 94 MEQ/L (98-107) Carbon Dioxide Level 32.1 MEQ/L (21.0-32.0) Estimat Glomerular Filtration Rate 41 ML/MIN (>89) 51 ML/MIN (>89) PE at Discharge GENERAL: This is an obese, well-developed patient, in no apparent distress. SKIN: Warm and dry. HEENT: Normocephalic. Pupils equal round and reactive. Nose without bleeding. Airway patent. NECK: Trachea midline. No JVD. Supple. CARDIOVASCULAR: Regular rate and rhythm without murmurs, gallops, or rubs. RESPIRATORY: Diminished bases. No wheezes, rales, or rhonchi. GASTROINTESTINAL: Abdomen soft, non-tender, nondistended. Bowel Sounds normoactive x4. MUSCULOSKELETAL: Extremities without clubbing, cyanosis, or edema. NEUROLOGICAL: Awake and alert. Moves all extremities. Normal speech. Pt update on day of discharge Follow-up visit encephalopathy, psychosis, HTN. Patient seen and examined today. Complaints of discomfort in her rectum, aggravated by laying in bed as per patient. Otherwise, denies SOB/ dyspnea. Denies chest pain, palpitations, headaches, dizziness. Denies fevers, chills, n/v/d. Denies dysuria. Hospital Course Patient is a 77-year-old female with history of bipolar disorder, spinal stenosis, HTN, HLD who came into the hospital with altered mental status. Found to have metabolic encephalopathy, progressive dementia with episodes of psychosis. CT of the head was negative. MRI of the brain showed no acute findings. Minimal white matter ischemic change. Remote lacunar infarct left basal ganglia. Neurologist followed the patient and recommends to place the patient and nursing care facility and to antipsychotics secondary to dementia with psychosis. Patient was also seen by psychiatrist and on evaluation states she does not be to involuntary psychiatric admission at this moment. Patient was started on Zyprexa 2.5 mg to help with neuropsychiatric symptoms. Neuropsychiatrist also evaluated the patient and deemed patient to be not cognitively capable of making decisions of a legal, financial and medical nature at this point in time. She demonstrates the impaired ability to appreciate a situation and its likely consequences and she demonstrates the impaired ability to manipulate information rationally. In other words, she lacks decision making capacity. She does not appear capable of managing her own funds. Patient has generalized weakness and has had frequent falls as part of her history she also has history of spinal stenosis where and she was met by physical therapist during her hospitalization. Patient needs to continue extensive rehabilitation and strength training. She complains of rectal pain that she was started on Annusol suppository and Tucks pad, we will refer to GI as an outpatient for further evaluation. Patient has met maximal benefits of hospitalization. Clinically stable for discharge to SNF. Pt Condition on Discharge: Stable Discharge Disposition: Discharge to SNF Discharge Time: > 30 minutes Discharge Instructions DIET: Follow Instructions for: Heart Healthy Diet, Diabetic Diet Activities you can perform: Regular-No Restrictions Activities to Avoid: Driving Kelly Fontaine Apr 25, 2017 09:01
--- NOTE | 2017-04-25 09:06 | HHI.PR ---
Subjective Remarks Follow-up visit encephalopathy, psychosis, HTN. Patient seen and examined today. Complaints of discomfort in her rectum, aggravated by laying in bed as per patient. Otherwise, denies SOB/ dyspnea. Denies chest pain, palpitations, headaches, dizziness. Denies fevers, chills, n/v/d. Denies dysuria. Objective Vitals Vital Signs Date Time Temp Pulse Resp B/P (MAP) Pulse Ox O2 Delivery O2 Flow Rate FiO2 04/25/17 08:37 97.3 87 18 149/67 (94) 92 04/25/17 04:13 98.7 84 16 128/58 (81) 90 04/24/17 23:07 97.8 84 16 135/64 (87) 91 04/24/17 20:21 92 04/24/17 19:31 97.3 83 16 132/63 (86) 95 04/24/17 19:00 2.00 04/24/17 15:19 97.7 79 18 145/65 (91) 97 04/24/17 12:07 97.6 79 19 147/67 (93) 95 04/24/17 10:15 Nasal Cannula 3.00 I/O 04/24/17 04/24/17 04/24/17 04/25/17 04/25/17 04/25/17 06:59 14:59 22:59 06:59 14:59 22:59 Intake Total 656 ml Balance 656 ml Intake Oral 320 ml IV Total 336 ml # Voids 2 4 4 # Bowel Movements 1 Result Diagram: 04/23/17 0517 04/24/17 0605 Imaging Last Impressions Brain MRI 04/23/17 0000 Signed Impressions: Service Date/Time: Sunday, April 23, 2017 18:53 - CONCLUSION: 1. No acute findings. Minimal white matter ischemic change. Remote lacunar infarct left basal ganglia. Alonso Alvarez MD Head CT 04/20/1752 Signed Impressions: Service Date/Time: Thursday, April 20, 2017 10:32 - CONCLUSION: 1. No acute findings in the brain. 2. Right maxillary sinus disease. Casper Parkinson MD Chest X-Ray 04/20/1752 Signed Impressions: Service Date/Time: Thursday, April 20, 2017 10:21 - CONCLUSION: The lungs are clear. Casper Parkinson MD Objective Remarks GENERAL: This is an obese, well-developed patient, in no apparent distress. SKIN: Warm and dry. HEENT: Normocephalic. Pupils equal round and reactive. Nose without bleeding. Airway patent. NECK: Trachea midline. No JVD. Supple. CARDIOVASCULAR: Regular rate and rhythm without murmurs, gallops, or rubs. RESPIRATORY: Diminished bases. No wheezes, rales, or rhonchi. GASTROINTESTINAL: Abdomen soft, non-tender, nondistended. Bowel Sounds normoactive x4. MUSCULOSKELETAL: Extremities without clubbing, cyanosis, or edema. NEUROLOGICAL: Awake and alert. Moves all extremities. Normal speech. Procedures None A/P Problem List: (1) Altered mental status ICD Code: R41.82 - Altered mental status, unspecified Status: Acute Assessment and Plan Patient is a 77-year-old female with history of bipolar disorder, spinal stenosis, HTN, HLD who came into the hospital with altered mental status. Encephalopathy, metabolic: Dementia, psychosis - Patient presented with altered mental status. Still somewhat confused. CT of the head is negative. - Appreciate neurology and psychiatry recommendations. Recommends nursing care facility and antipsychotics to manage patient's dementia with psychosis - MRI brain showed 1. No acute findings. Minimal white matter ischemic change. Remote lacunar infarct left basal ganglia. - Patient was seen by psychiatry and on evaluation states this does not meet involuntary psychiatric admission at this moment. They will continue Cipro fraction 2.5 mg twice a day to help with neuropsychiatric symptom as presented. - Neuropsychiatry evaluate the patient deemed patient to be not cognitively capable of making decisions of a legal, financial and medical nature at this point in time. She demonstrates the impaired ability to appreciate a situation and its likely consequences and she demonstrates the impaired ability to manipulate information rationally. In other words, she lacks decision making capacity. She does not appear capable of managing her own funds. Frequent falls, history of spinal stenosis: - Fall precautions. Physical therapy. - She needs extensive rehabilitation appropriate placement with the long term facility. - Spoke with case management to work out if patient could go back to [place] to long term facility to continue her rehabilitation. Hypertension: - Continue HCTZ, lisinopril, amlodipine. Dyslipidemia: - Continue Lipitor. Questionable history of diabetes mellitus: - HgA1c 5.4. Discontinue Accu-Cheks. Rectal pain: - Continue Tucks pads. - Distal suppository twice a day DVT prophylaxis: SCDs. Discharge Planning Plan to DC today at [facility] Problem Qualifiers (1) Altered mental status: Qualified Codes: R41.82 - Altered mental status, unspecified Kelly Fontaine Apr 25, 2017 09:06
[2017-04-25] MEDS ORDERED: NEUR300C PO (09:18)
[2017-04-25] MEDS ORDERED: TUCKSPAD TOPICAL (09:18)
[2017-04-25] MEDS ORDERED: NEUR400C PO (09:18)
[2017-04-25] MEDS ORDERED: OLAN2.5T7 PO (09:18)
[2017-04-25] MEDS ORDERED: ANUS25SU RECTAL (09:18)
[2017-04-25] MEDS ORDERED: HYDROCORTISONE ACETATE 25 MG SUPP RECTAL SCH (10:00)
== END 2017-04-25 11:49 | disposition home or self-care (01) ==
LOC: NEPE 09:30 → NEDA 14:25 → NEPHCDU 15:18
PROVIDERS: ADMIT Hospitalist; ATTEND Hospitalist
DX: R41.82 Altered mental status, unspecified (principal); F05 Delirium due to known physiological condition; R06.02 Shortness of breath; R53.1 Weakness; K62.89 Other specified diseases of anus and rectum; R26.9 Unspecified abnormalities of gait and mobility; N17.9 Acute kidney failure, unspecified; E86.0 Dehydration; F31.10 Bipolar disorder, current episode manic without psychotic features, unspecified; G93.41 Metabolic encephalopathy; R05 Cough; I12.9 Hypertensive chronic kidney disease with stage 1 through stage 4 chronic kidney disease, or unspecified chronic kidney disease; E11.22 Type 2 diabetes mellitus with diabetic chronic kidney disease; N18.3 Chronic kidney disease, stage 3 (moderate); E11.40 Type 2 diabetes mellitus with diabetic neuropathy, unspecified; E78.00 Pure hypercholesterolemia, unspecified; K21.9 Gastro-esophageal reflux disease without esophagitis; J32.0 Chronic maxillary sinusitis; M54.16 Radiculopathy, lumbar region; M48.00 Spinal stenosis, site unspecified; N32.81 Overactive bladder; G30.9 Alzheimer's disease, unspecified; F02.81 Dementia in other diseases classified elsewhere, unspecified severity, with behavioral disturbance; F32.9 Major depressive disorder, single episode, unspecified; M19.90 Unspecified osteoarthritis, unspecified site; R29.6 Repeated falls; Z86.73 Personal history of transient ischemic attack (TIA), and cerebral infarction without residual deficits; Z79.899 Other long term (current) drug therapy; Z79.82 Long term (current) use of aspirin; Z79.4 Long term (current) use of insulin
CPT/HCPCS: 70450; 70553; 71045; 80048; 80053; 81001; 82140; 82607; 82948; 83036; 83735; 84100; 84443; 85025; 85652; 86038; 86592; 93005; 96361; 96374; 96376; 97110; 97116; 97162; 99285; A9579; G0378; G8987; G8988; J2060; J7030; J7040